=== PATIENT | female | born 1950 | race African-American/Black ===

== ENCOUNTER → 2018-04-02 | Outpatient (CLI) | payer MEDICARE, OTHER ==
[2018-04-02 10:01] LABS: ABSOLUTE BASOPHILS # (AUTO) 0.1 10^3/uL (0.0-0.2); ABSOLUTE EOSINOPHILS # (AUTO) 0.2 10^3/uL (0.0-0.6); ABSOLUTE LYMPHOCYTES (AUTO) 1.6 10^3/uL (0.5-4.7); ABSOLUTE MONOCYTES (AUTO) 0.4 10^3/uL (0.1-1.4); ABSOLUTE NEUT (AUTO) 3.3 10^3/uL (1.7-8.2); BASOPHILS % (AUTO) 1.4 % (0-2); EOSINOPHILS % (AUTO) 3.6 % (0-6); HEMATOCRIT 35.4 % (36.0-47.0); HEMOGLOBIN 11.6 g/dL (12.0-15.5); LYMPHOCYTES % (AUTO) 28.2 % (13-45); MEAN CORPUSCULAR HEMOGLOBIN 27.3 pg (27.0-33.4); MEAN CORPUSCULAR HGB CONC 32.9 g/dL (32.0-36.0); MEAN CORPUSCULAR VOLUME 83 fl (80-97); MONOCYTES % (AUTO) 7.9 % (3-13); PLATELET COUNT 259 10^3/uL (150-450); RED BLOOD COUNT 4.27 10^6/uL (3.72-5.28); RED CELL DISTRIBUTION WIDTH 13.7 % (11.5-14.0); SEGMENTED NEUTROPHILS % (AUTO) 58.9 % (42-78); TOTAL CELLS COUNTED % (AUTO) 100 %; WHITE BLOOD COUNT 5.5 10^3/uL (4.0-10.5)
[2018-04-02 10:29] LABS: CHOLESTEROL 232.89 mg/dL (0-200); TRIGLYCERIDES 126 mg/dL (<150); VLDL CHOLESTEROL 25.2 mg/dL (10-31)
[2018-04-02 10:39] LABS: DIRECT LDL 146 mg/dL (<100)
== END ==
LOC: OD 09:23
PROVIDERS: ATTEND Internal Medicine
DX: E11.9 Type 2 diabetes mellitus without complications (principal); I10 Essential (primary) hypertension; Z79.899 Other long term (current) drug therapy
CPT/HCPCS: 36415; 80061; 85025

== ENCOUNTER → 2018-04-21 | Outpatient (CLI) | payer MEDICARE, OTHER ==
[2018-04-21 10:08] LABS: ALANINE AMINOTRANSFERASE 34 U/L (9-52); ALBUMIN 4.1 g/dL (3.5-5.0); ALKALINE PHOSPHATASE 60 U/L (38-126); ANION GAP 15 (5-19); ASPARTATE AMINO TRANSFERASE 24 U/L (14-36); BILIRUBIN,DIRECT 0.3 mg/dL (0.0-0.4); BILIRUBIN,TOTAL 0.5 mg/dL (0.2-1.3); BLOOD UREA NITROGEN 16 mg/dL (7-20); CALCIUM 9.7 mg/dL (8.4-10.2); CARBON DIOXIDE 28 mmol/L (22-30); CHLORIDE 100 mmol/L (98-107); GLUCOSE 120 mg/dL (75-110); POTASSIUM 3.9 mmol/L (3.6-5.0); SODIUM 142.6 mmol/L (137-145); TOTAL PROTEIN 7.2 g/dL (6.3-8.2)
== END ==
LOC: OD 08:50
PROVIDERS: ATTEND Internal Medicine
DX: E11.9 Type 2 diabetes mellitus without complications (principal); I10 Essential (primary) hypertension; Z79.899 Other long term (current) drug therapy
CPT/HCPCS: 36415; 80053

== ENCOUNTER → 2018-07-06 | Outpatient (CLI) | payer MEDICARE, OTHER ==
[2018-07-06 17:02] LABS: ABSOLUTE EOSINOPHILS # (AUTO) 0.2 10^3/uL (0.0-0.6); ABSOLUTE LYMPHOCYTES (AUTO) 1.7 10^3/uL (0.5-4.7); ABSOLUTE MONOCYTES (AUTO) 0.5 10^3/uL (0.1-1.4); ABSOLUTE NEUT (AUTO) 3.2 10^3/uL (1.7-8.2); BASOPHILS % (AUTO) 0.8 % (0-2); EOSINOPHILS % (AUTO) 3.7 % (0-6); HEMATOCRIT 36.1 % (36.0-47.0); LYMPHOCYTES % (AUTO) 29.8 % (13-45); MEAN CORPUSCULAR HEMOGLOBIN 27.5 pg (27.0-33.4); MEAN CORPUSCULAR HGB CONC 33.3 g/dL (32.0-36.0); MEAN CORPUSCULAR VOLUME 83 fl (80-97); MONOCYTES % (AUTO) 9.3 % (3-13); PLATELET COUNT 275 10^3/uL (150-450); RED BLOOD COUNT 4.37 10^6/uL (3.72-5.28); RED CELL DISTRIBUTION WIDTH 13.9 % (11.5-14.0); SEGMENTED NEUTROPHILS % (AUTO) 56.4 % (42-78); TOTAL CELLS COUNTED % (AUTO) 100 %; WHITE BLOOD COUNT 5.7 10^3/uL (4.0-10.5)
[2018-07-06 17:04] LABS: APPEARANCE,URINE CLEAR; BILIRUBIN,URINE NEGATIVE (NEGATIVE); COLOR,URINE YELLOW; GLUCOSE, URINE NEGATIVE (NEGATIVE); KETONES,URINE NEGATIVE (NEGATIVE); LEUKOCYTE ESTERASE,URINE SMALL (NEGATIVE); NITRITE,URINE NEGATIVE (NEGATIVE); PROTEIN,URINE NEGATIVE (NEGATIVE); URINE SPECIFIC GRAVITY 1.019; UROBILINOGEN,URINE NEGATIVE mg/dL (<2.0)
[2018-07-06 17:24] LABS: ANION GAP 10 (5-19); BLOOD UREA NITROGEN 14 mg/dL (7-20); CALCIUM 9.9 mg/dL (8.4-10.2); CARBON DIOXIDE 27 mmol/L (22-30); CHLORIDE 103 mmol/L (98-107); GLUCOSE 113 mg/dL (75-110); POTASSIUM 4.7 mmol/L (3.6-5.0); SODIUM 139.8 mmol/L (137-145)
--- NOTE | 2018-07-06 17:30 | RADIOLOGY REPORT (SQ) ---
EXAM DESCRIPTION: CHEST PA/LATERAL COMPLETED DATE/TIME: 07/06/2018 5:06 pm REASON FOR STUDY: PRE-OP COMPARISON: 12/23/2008 EXAM PARAMETERS: NUMBER OF VIEWS: two views TECHNIQUE: Digital Frontal and Lateral radiographic views of the chest acquired. RADIATION DOSE: NA LIMITATIONS: none FINDINGS: LUNGS AND PLEURA: No opacities, masses or pneumothorax. No pleural effusion. MEDIASTINUM AND HILAR STRUCTURES: No masses or contour abnormalities. HEART AND VASCULAR STRUCTURES: Heart normal size. No evidence for failure. BONES: No acute findings. HARDWARE: None in the chest. OTHER: No other significant finding. IMPRESSION: NO SIGNIFICANT RADIOGRAPHIC FINDING IN THE CHEST. TECHNICAL DOCUMENTATION: JOB ID: [id number] [employer]- All Rights Reserved Reading location - IP/workstation name: [email or web address]
--- NOTE | 2018-07-06 19:40 | EKG REPORT ---
SEVERITY:- ABNORMAL ECG - SINUS RHYTHM PROBABLE INFERIOR INFARCT, OLD : Confirmed by: Carl Sheehan 06-Jul-2018 19:38:55
== END ==
LOC: OD 16:19
PROVIDERS: ATTEND Orthopaedic Surgery
DX: Z01.810 Encounter for preprocedural cardiovascular examination (principal); Z01.812 Encounter for preprocedural laboratory examination; Z01.818 Encounter for other preprocedural examination; E11.9 Type 2 diabetes mellitus without complications
CPT/HCPCS: 36415; 71046; 80048; 81001; 83036; 85025; 93005; 93010

== ENCOUNTER 2018-07-26 05:29 | Inpatient (IN) | payer MEDICARE, OTHER ==
--- NOTE | 2018-07-21 14:04 | Physician Advisory Note ---
Physician Advisor ProgressNote .: [facility] have reviewed the medical record for this patient. Physician Advisor Statement: H&P needs specifics of DJD findings on xray - joint space narrowing, osteophytes , ... Other points Medicare looks for are covered. Thanks! CK
[~2018-07-26 05:29] MED LIST: BUPIVACAINE INJ/PF LIPOSOME/PF 266 MG/20 ML SDV INJ PRN; CEFAZOLIN INJ 1 GM VIAL IV PRN; CEFAZOLIN INJ 1 GM VIAL ONE; IBUPROFEN 800 MG in NORMAL SALINE 250 ML IV PRN; LACTATED RINGERS 1000 ML IV PRN; LANSOPRAZOLE 15 MG TAB.RAP.DR ONE; LANSOPRAZOLE 15 MG TAB.RAP.DR PO PRN; LIDOCAINE 0.5% INJ-PF (5 MG/ML) 50 ML SDV SUBCUT PRN; OXYCODONE HCL SR 10 MG TABLET PO ONE; OXYCODONE HCL SR 10 MG TABLET PO PRN; VANCOMYCIN HCL 1,000 MG in DEXTROSE 5%-WATER 250 ML IV PRN
[2018-07-26] MEDS ORDERED: THROMBIN (BOVINE) TOPICAL 20000 UNIT VIAL ONE (06:58)
[2018-07-26] MEDS ORDERED: BUPIVACAINE INJ/PF LIPOSOME/PF 266 MG/20 ML SDV ONE (06:59)
[2018-07-26] MEDS ORDERED: MIDAZOLAM 2 MG/2 ML INJ ONE (07:05)
[2018-07-26] MEDS ORDERED: ONDANSETRON HCL INJ/PF 4 MG/2 ML SDV ONE (07:05)
[2018-07-26] MEDS ORDERED: TRANEXAMIC ACID INJ/PF 1,000 MG/10 ML SDV IV ONE ×3 (07:05→10:30)
[2018-07-26] MEDS ORDERED: PROPOFOL INJ 200 MG/20 ML VIAL IV ONE (07:05)
[2018-07-26] MEDS ORDERED: BUPIVACAINE HCL/DEX-WATER/PF 15 MG/2 ML AMPULE ONE (07:06)
[2018-07-26] MEDS ORDERED: DIPHENHYDRAMINE HCL 50 MG/ML VIAL IV PRN ×2 (07:53→08:33)
[2018-07-26] MEDS ORDERED: PROMETHAZINE HCL INJ 25 MG/1 ML VIAL IV PRN (07:53)
[2018-07-26] MEDS ORDERED: MEPERIDINE HCL/PF INJ 25 MG/1 ML DISP.SYRIN IV PRN (07:53)
[2018-07-26] MEDS ORDERED: MORPHINE SULFATE 10 MG/ML INJ IV PRN ×3 (07:53→08:33)
[2018-07-26] MEDS ORDERED: FENTANYL CITRATE INJ/PF 100 MCG/2 ML AMPUL IV PRN ×3 (07:53)
[2018-07-26] MEDS ORDERED: BUPIVACAINE HCL 0.25% /EPINEPHRINE INJ/PF 30 ML SDV ONE ×2 (07:58→08:17)
[2018-07-26] MEDS ORDERED: THROMBIN (BOVINE) 5000 UNIT EPITAXIS KIT TP ONE (08:11)
[2018-07-26] MEDS ORDERED: RINGERS SOLUTION,LACTATED 1,000 ML IV PRN (08:33)
[2018-07-26] MEDS ORDERED: ZOLPIDEM TARTRATE 5 MG TABLET PO PRN (08:33)
[2018-07-26] MEDS ORDERED: ONDANSETRON 4 MG TAB.RAPDIS PO PRN (08:33)
[2018-07-26] MEDS ORDERED: ACETAMINOPHEN 325 MG TABLET PO PRN (08:33)
[2018-07-26] MEDS ORDERED: OXYCODONE HCL IR 5 MG TABLET PO PRN (08:33)
[2018-07-26] MEDS ORDERED: MAG HYDROX/AL HYDROX/SIMETH SUSP 30 ML UDCUP PO PRN (08:33)
[2018-07-26] MEDS ORDERED: ONDANSETRON HCL INJ/PF 4 MG/2 ML SDV IV PRN (08:33)
[2018-07-26] MEDS ORDERED: MORPHINE SULFATE 10 MG/ML INJ IM PRN (08:33)
--- NOTE | 2018-07-26 08:38 | Operative Report ---
Operative Report DATE OF SURGERY: 07/26/18 PREOPERATIVE DIAGNOSIS: Right knee arthritis OPERATION: Right knee arthroplasty SURGEON: ELOY CELESTE ANESTHESIA: Spinal TISSUE REMOVED OR ALTERED: Bone to pathology ESTIMATED BLOOD LOSS: 100 PROCEDURE: Implants used: Femur: Brant triathlon size 4 CR femur Tibia: 4 tibia Tibial liner: 11 mm CS insert Patella: 32 mm oval patella Procedure with the patient supine on the operating table the right the limb is prepped and draped in a sterile fashion. The limb was elevated for exsanguination and the tourniquet inflated to 280 torr. A standard midline median parapatellar approach the knee is taken. Access is gained to the femoral canal through the intercondylar notch. Intramedullary alignment instrumentation used to resect 10 mm of distal femur in 5 of valgus. Sizing guide indicated a size 4 femur. Appropriate cutting jig is then used to fashion anterior posterior and chamfer cuts. A trial reduction femurs performed and this is judged to be adequate. Attention was next turned to the tibia. Using an extra medullary alignment system 11 millimeters was resected off the lateral tibial plateau to make up for medial plateau defect. This is sized to a size 4 tibia. A trial reduction was now performed with a 4 femur and a for tibia using a 11 millimeters spacer. It is full extension and central patellofemoral tracking. The articular surface the patella was next resected using an oscillating saw. All trial implants were removed. Polymethylmethacrylate is mixed and used to cement the above implants in place. On adequate curing the cement excess cement was removed the tourniquet was deflated hemostasis obtained the wound is then closed in layers using interrupted Vicryl followed by daira. A sterile compressive dressing was applied and the patient returned to recovery room in satisfactory condition.
--- NOTE | 2018-07-26 11:00 | RADIOLOGY REPORT (SQ) ---
EXAM DESCRIPTION: KNEE RIGHT 2 VIEWS COMPLETED DATE/TIME: 07/26/2018 10:19 am REASON FOR STUDY: Right Total Knee Arthroplasty M17.11 UNILATERAL PRIMARY OSTEOARTHRITIS, RIGHT KNE E COMPARISON: None. NUMBER OF VIEWS: 2 view(s). TECHNIQUE: Digital radiographic images of the right knee post-procedure. LIMITATIONS: None. FINDINGS: BONES: No worrisome or unexpected findings post-procedure. DEVICE: The patient is status post right total knee replacement. The prosthesis appears well seated in the distal femur and proximal tibia in the projections obtained SOFT TISSUES: No worrisome findings. Expected postoperative soft tissue changes. IMPRESSION: SATISFACTORY POSTOPERATIVE RIGHT KNEE. TECHNICAL DOCUMENTATION: JOB ID: [id number] [employer]- All Rights Reserved Reading location - IP/workstation name: [email or web address]
[2018-07-26] MEDS: MORPHINE SULFATE 10 MG/ML INJ IV PRN ×2 (12:47→23:37)
--- NOTE | 2018-07-26 14:06 | Physician Advisory Note ---
Physician Advisor ProgressNote .: [facility], I have reviewed the medical record for this patient. Physician Advisor Statement: Attending expecting Medicare pt to need rehab stay post-op, JOCELYNE consulted for this. Therefore, approp for Inpt for her TKA, as ordered. CK
[2018-07-26] MEDS ORDERED: ACETAMINOPHEN 1,000 MG/100 ML RTUPB IV ONE (14:33)
[2018-07-26] MEDS: SENNOSIDES/DOCUSATE 8.6-50 MG 1 EACH TABLET PO SCH (17:50)
[2018-07-26] MEDS: PREGABALIN 75 MG CAPSULE PO SCH (17:51)
[2018-07-26] MEDS ORDERED: VANCOMYCIN HCL 1,000 MG in DEXTROSE 5%-WATER 250 ML IV ONE (20:33)
[2018-07-26] MEDS: OXYCODONE HCL SR 10 MG TABLET PO SCH (21:14)
[2018-07-27] MEDS ORDERED: LANSOPRAZOLE 30 MG TAB.RAP.DR PO SCH (06:00)
[2018-07-27 06:50] LABS: HEMOGLOBIN 11.3 g/dL (12.0-15.5); MEAN CORPUSCULAR HEMOGLOBIN 27.7 pg (27.0-33.4); MEAN CORPUSCULAR HGB CONC 34.1 g/dL (32.0-36.0); MEAN CORPUSCULAR VOLUME 81 fl (80-97); PLATELET COUNT 247 10^3/uL (150-450); RED BLOOD COUNT 4.07 10^6/uL (3.72-5.28); RED CELL DISTRIBUTION WIDTH 13.8 % (11.5-14.0); WHITE BLOOD COUNT 10.1 10^3/uL (4.0-10.5)
[2018-07-27 06:59] LABS: ANION GAP 13 (5-19); BLOOD UREA NITROGEN 13 mg/dL (7-20); CALCIUM 9.4 mg/dL (8.4-10.2); CARBON DIOXIDE 26 mmol/L (22-30); CHLORIDE 95 mmol/L (98-107); GLUCOSE 184 mg/dL (75-110); SODIUM 133.8 mmol/L (137-145)
--- NOTE | 2018-07-27 07:17 | PDOC PROGRESS REPORT ---
Subjective Progress Note for:: 07/27/18 Reason For Visit: M17.11 UNILATERAL PRIMARY OSTEOARTHRITIS, RIGHT KN 67-year-old black female postop day 1 right knee arthroplasty. Patient with an uneventful postoperative course thus far. Physical Exam Vital Signs: Temp Pulse Resp BP Pulse Ox 37.0 C 77 18 160/85 H 91 L 07/26/18 23:56 07/26/18 23:56 07/26/18 23:56 07/26/18 23:56 07/26/18 23:56 Intake & Output 07/26/18 07/27/18 07/28/18 06:59 06:59 06:59 Intake Total 0 5205 Output Total 1500 Balance 0 3705 Weight 100.7 kg 107.5 kg General appearance: PRESENT: no acute distress, mild distress, obese Head exam: PRESENT: normocephalic Respiratory exam: PRESENT: unlabored Cardiovascular exam: PRESENT: RRR Vascular exam: PRESENT: normal capillary refill GI/Abdominal exam: PRESENT: soft Rectal exam: PRESENT: deferred Extremities exam: PRESENT: other - Right lower extremity knee dressing clean dry and intact. Distal neurovascular examination is intact. Neurological exam: PRESENT: alert, awake, oriented to person, oriented to place , oriented to time, oriented to situation. ABSENT: motor sensory deficit Psychiatric exam: PRESENT: appropriate affect, normal mood. ABSENT: homicidal ideation, suicidal ideation Skin exam: PRESENT: dry, intact, warm. ABSENT: cyanosis, rash Results Laboratory Results: 07/27/18 06:29 07/27/18 06:29 WBC 10.1 RBC 4.07 Hgb 11.3 L Hct 33.0 L MCV 81 MCH 27.7 MCHC 34.1 RDW 13.8 Plt Count 247 Impressions: Knee X-Ray 07/26/18 00:00 IMPRESSION: SATISFACTORY POSTOPERATIVE RIGHT KNEE. Status: Imported from PACS Assessment & Plan - Diagnosis (1) Arthritis of knee, right Is this a current diagnosis for this admission?: Yes Plan: 67-year-old black female status post right knee arthroplasty with an uneventful postoperative course. Patient made reasonable progress with physical therapy yesterday ambulating 100 feet. Patient lives alone and has 13 steps to enter her domicile. She is concerned about going home alone and is of the opinion that she would be better served with postoperative rehabilitation. In light of this the patient will remain hospitalized currently for 3 hospital nights and then be transferred to a fpc facility. - Time Time Spent with patient: 15-24 minutes Anticipated discharge: SNF Within: Other
[2018-07-27] MEDS ORDERED: OXYCODONE HCL IR 5 MG TABLET PO PRN (07:42)
[2018-07-27] MEDS: AMLODIPINE BESYLATE 10 MG TABLET PO SCH (09:29)
[2018-07-27] MEDS: FLUOXETINE HCL 20 MG CAPSULE PO SCH (09:29)
[2018-07-27] MEDS: ASPIRIN 81 MG TABLET, ENT COATED PO SCH (09:29)
[2018-07-27] MEDS: PREGABALIN 75 MG CAPSULE PO SCH ×2 (09:29→18:45)
[2018-07-27] MEDS: SENNOSIDES/DOCUSATE 8.6-50 MG 1 EACH TABLET PO SCH ×2 (09:29→18:45)
[2018-07-27] MEDS: PRENATAL VITAMIN W DHA CAPSULE PO SCH (09:29)
[2018-07-27] MEDS: OXYCODONE HCL SR 10 MG TABLET PO SCH ×2 (09:30→21:26)
[2018-07-27] MEDS: MONTELUKAST SODIUM 10 MG TABLET PO SCH (09:30)
[2018-07-27] MEDS ORDERED: (PENDING PHARMACY ID) (Quetiapine Fumarate [Seroquel] 200 MG) PO SCH (10:00)
[2018-07-27] MEDS ORDERED: [UNRECOGNIZED DRUG - OTHER] PO SCH (10:00)
[2018-07-27] MEDS ORDERED: HYDROCHLOROTHIAZIDE PO SCH (10:00)
[2018-07-27] MEDS ORDERED: (PENDING PHARMACY ID) (Labetalol Hcl [Trandate] 300 MG) PO SCH (10:00)
[2018-07-27] MEDS ORDERED: BENAZEPRIL PO SCH (10:00)
[2018-07-27] MEDS: HYDROCHLOROTHIAZIDE 12.5 MG TABLET PO SCH (10:49)
[2018-07-27] MEDS: BENAZEPRIL HCL 20 MG TABLET PO SCH (10:49)
[2018-07-27] MEDS: FLUTICASONE/SALMETEROL DISKUS 250-50 MCG/DOSE IH SCH (10:49)
[2018-07-27] MEDS: QUETIAPINE FUMARATE 100 MG TABLET PO SCH ×2 (10:50→21:20)
[2018-07-27] MEDS: LABETALOL HCL 200 MG TABLET PO SCH ×2 (10:54→21:19)
[2018-07-27] MEDS ORDERED: LABETALOL HCL INJ 20 MG/4 ML DISP.SYRIN IV ONE ×2 (13:00→13:15)
[2018-07-27] MEDS ORDERED: NYSTATIN 500000 UNIT/5 ML UDCUP PO SCH (14:00)
[2018-07-27] MEDS ORDERED: GLUCAGON,HUMAN RECOMB 1 MG INJ IM PRN (15:38)
[2018-07-27] MEDS ORDERED: DEXTROSE 40% GEL 15 GM TUBE PO PRN ×2 (15:38)
[2018-07-27] MEDS ORDERED: INSULIN LISPRO 100 UNIT/ML 3 ML VIAL SUBCUT PRN (15:38)
[2018-07-27] MEDS ORDERED: DEXTROSE 50%-WATER 25 GM/50 ML DISP.SYRIN IV PRN ×2 (15:38)
--- NOTE | 2018-07-27 15:38 | PDOC CONSULTATION ---
Consultation Consult Date: 07/27/18 Attending physician:: ELOY CELESTE Consult reason:: Hypertensive urgency History of Present Illness Admission Date/PCP: 07/26/18 05:29 CHANTEL VILLEGAS MD Patient complains of: Patient admitted for right total knee replacement History of Present Illness: EDUARDO CRUZ is a 67 year old female who suffers from hypertension and hyperlipidemia. Patient was admitted for an elective right total knee replacement. She apparently took her morning medicines came to the hospital for her surgery. Postoperatively patient did not receive her routine medications. She tolerated the procedure well but was noted to have an accelerated hypertension with blood pressures in the 180-190s. She was resumed on her outpatient medications and 2 hours later her systolic blood pressure was in excess of 200. A consultation for management of hypertension was requested. With the elevated blood pressure patient was given labetalol 20 mg IV she had already received her normal dose of 300 mg in addition to her other antihypertensive medications. Over the next 2 hours her blood pressure came down into the 150s and she is demonstrating reasonable control of her hypertension at this time. She is somewhat sedated at interview due to pain medication her pain appears adequately controlled and she has no other specific complaints. Past Medical History Cardiac Medical History: Reports: Hyperlipidema, Hypertension - on meds Denies: Atrial Fibrillation, Congestive Heart Failure, Coronary Artery Disease, Myocardial Infarction, Peripheral Vascular Disease, Pulmonary Embolism , Heart Murmur Pulmonary Medical History: Reports: Asthma Denies: Bronchitis, Chronic Obstructive Pulmonary Disease (COPD), Pneumonia, Respiratory Failure, Sleep Apnea, Tuberculosis Neurological Medical History: Denies: Seizures Endocrine Medical History: Reports: Diabetes Mellitus Type 2 Denies: Hyperthyroidism, Hypothyroidism Malignancy Medical History: Denies: Lung Cancer GI Medical History: Reports: Gastroesophageal Reflux Disease Denies: Crohn's Disease, Hiatal Hernia Musculoskeltal Medical History: Reports: Arthritis - knees Denies: Fibromyalgia Psychiatric Medical History: Reports: Depression Denies: Bipolar Disorder, Post Traumatic Stress Disorder Hematology: Denies: Anemia Past Surgical History Past Surgical History: Reports: Orthopedic Surgery - Right total knee replacement 07/26/2018, Other - Colonoscopy Denies: Amputation, Colostomy Social History Smoking Status: Never Smoker Hx Recreational Drug Use: No Hx Prescription Drug Abuse: No - Advance Directive Resuscitation Status: Full Code Family History Family History: Hypertension - Mother, Malignancy - Colon cancer-father Parental Family History Reviewed: Yes Children Family History Reviewed: Yes Sibling(s) Family History Reviewed.: Yes Medication/Allergy Home Medications: Amlodipine Besylate [Norvasc 10 mg Tablet] 10 mg PO DAILY 07/26/18 Benazepril/Hydrochlorothiazide [Benazepril-Hctz 20-12.5 mg Tab] 1 tab PO DAILY 07/26/18 Fluoxetine HCl [Prozac 20 mg Capsule] 20 mg PO DAILY 07/26/18 Fluticasone/Salmeterol [Advair 250-50 Diskus 14 Dose/Diskus] 2 puff IH DAILY Labetalol HCl [Trandate] 300 mg PO Q12 07/26/18 Meloxicam [Mobic] 7.5 mg PO BIDBS 07/26/18 Metformin HCl [Metformin HCl ER] 500 mg PO BIDBS 07/26/18 Montelukast Sodium [Singulair 10 mg Tablet] 10 mg PO DAILY 07/26/18 Omeprazole 20 mg PO BID 07/26/18 Quetiapine Fumarate [Seroquel] 200 mg PO BID 07/26/18 Rosuvastatin Calcium [Crestor 10 mg Tablet] 10 mg PO DAILY 07/26/18 Allergies/Adverse Reactions: No Known Allergies Allergy (Verified 07/13/18 10:06) Review of Systems All systems: reviewed and no additional remarkable complaints except as stated - Right lower extremity pain consistent with postoperative state Physical Exam Vital Signs: Temp Pulse Resp BP Pulse Ox 98.0 F 83 16 154/72 H 94 07/27/18 08:25 07/27/18 13:30 07/27/18 13:30 07/27/18 13:30 07/27/18 08:25 Intake & Output 07/26/18 07/27/18 07/28/18 06:59 06:59 06:59 Intake Total 0 5205 Output Total 1500 Balance 0 3705 Weight 100.7 kg 107.5 kg General appearance: PRESENT: no acute distress, well-developed, well-nourished Head exam: PRESENT: atraumatic, normocephalic Eye exam: PRESENT: conjunctiva pink, EOMI, PERRLA. ABSENT: scleral icterus Neck exam: ABSENT: carotid bruit, JVD, lymphadenopathy, thyromegaly Respiratory exam: PRESENT: clear to auscultation ezio. ABSENT: rales, rhonchi, wheezes Cardiovascular exam: PRESENT: RRR. ABSENT: diastolic murmur, rubs, systolic murmur Pulses: PRESENT: normal dorsalis pedis pul GI/Abdominal exam: PRESENT: normal bowel sounds, soft. ABSENT: distended, guarding, mass, organolmegaly, rebound, tenderness Extremities exam: PRESENT: full ROM. ABSENT: calf tenderness, clubbing, pedal edema Musculoskeletal exam: PRESENT: tenderness - Right lower extremity surgical dressing in place status post total knee replacement Neurological exam: PRESENT: alert - Slightly groggy from pain medication, awake , oriented to person, oriented to place, oriented to time, oriented to situation , CN II-XII grossly intact. ABSENT: motor sensory deficit Psychiatric exam: PRESENT: appropriate affect, normal mood. ABSENT: homicidal ideation, suicidal ideation Results Laboratory Results: 07/27/18 06:29 07/27/18 06:29 07/27/18 07/27/18 06:29 06:29 WBC 10.1 RBC 4.07 Hgb 11.3 L Hct 33.0 L MCV 81 MCH 27.7 MCHC 34.1 RDW 13.8 Plt Count 247 Sodium 133.8 L Potassium 4.0 Chloride 95 L Carbon Dioxide 26 Anion Gap 13 BUN 13 Creatinine 0.75 Est GFR ( Amer) > 60 Est GFR (Non-Af Amer) > 60 Glucose 184 H Calcium 9.4 Impressions: Knee X-Ray 07/26/18 00:00 IMPRESSION: SATISFACTORY POSTOPERATIVE RIGHT KNEE. Assessment & Plan - Diagnosis (1) Hypertensive urgency Is this a current diagnosis for this admission?: Yes Plan: Patient responded well to additional IV labetalol. Patient is currently back on her home medications of amlodipine labetalol benazepril hydrochlorothiazide. Will provide as needed hydralazine IV if systolic greater than 180. Will monitor blood pressure and we will not make any changes to her home regimen at this time. (2) Hyperlipidemia Is this a current diagnosis for this admission?: Yes Plan: Continue statin (3) Diabetes mellitus type 2 in obese Is this a current diagnosis for this admission?: Yes Plan: Check hemoglobin A1c continue metformin and initiate sliding scale to monitor glucose (4) Depression Is this a current diagnosis for this admission?: Yes Plan: Continue Seroquel and Prozac (5) GERD (gastroesophageal reflux disease) Is this a current diagnosis for this admission?: Yes Plan: Continue PPI - Time Time Spent: 30 to 50 Minutes - Plan Summary Plan Summary: Thank you for the consultation will follow the patient along with you while she is in the hospital.
[2018-07-27] MEDS ORDERED: HYDRALAZINE HCL INJ/PF 20 MG/1 ML SDV IV PRN (15:40)
[2018-07-27] MEDS ORDERED: (PENDING PHARMACY ID) (Metformin Hcl [Metformin Hcl Er] 500 MG) PO SCH (17:00)
[2018-07-27] MEDS: METFORMIN HCL 500 MG TABLET PO SCH (18:45)
[2018-07-27] MEDS: LANSOPRAZOLE 15 MG TAB.RAP.DR PO SCH (18:45)
[2018-07-27] MEDS: ATORVASTATIN CALCIUM 20 MG TABLET PO SCH (21:21)
[2018-07-28 05:18] LABS: HEMATOCRIT 30.1 % (36.0-47.0); HEMOGLOBIN 10.1 g/dL (12.0-15.5); MEAN CORPUSCULAR HEMOGLOBIN 27.6 pg (27.0-33.4); MEAN CORPUSCULAR HGB CONC 33.7 g/dL (32.0-36.0); MEAN CORPUSCULAR VOLUME 82 fl (80-97); PLATELET COUNT 246 10^3/uL (150-450); RED BLOOD COUNT 3.67 10^6/uL (3.72-5.28); RED CELL DISTRIBUTION WIDTH 13.8 % (11.5-14.0); WHITE BLOOD COUNT 9.6 10^3/uL (4.0-10.5)
[2018-07-28 05:42] LABS: ANION GAP 12 (5-19); BLOOD UREA NITROGEN 28 mg/dL (7-20); CALCIUM 9.3 mg/dL (8.4-10.2); CARBON DIOXIDE 27 mmol/L (22-30); CHLORIDE 93 mmol/L (98-107); GLUCOSE 141 mg/dL (75-110); POTASSIUM 4.2 mmol/L (3.6-5.0); SODIUM 131.8 mmol/L (137-145)
[2018-07-28] MEDS: LANSOPRAZOLE 15 MG TAB.RAP.DR PO SCH ×2 (06:30→17:46)
--- NOTE | 2018-07-28 07:14 | PDOC PROGRESS REPORT ---
Subjective Progress Note for:: 07/28/18 Reason For Visit: M17.11 UNILATERAL PRIMARY OSTEOARTHRITIS, RIGHT KN 67-year-old black female now postop day 2 status post right knee arthroplasty. Patient made excellent progress with physical therapy yesterday. Pain is better controlled on the new analgesic regimen. Physical Exam Vital Signs: Temp Pulse Resp BP Pulse Ox 37.2 C 86 18 133/61 H 91 L 07/27/18 23:26 07/27/18 23:26 07/27/18 23:26 07/27/18 23:26 07/27/18 23:26 Intake & Output 07/27/18 07/28/18 07/29/18 06:59 06:59 06:59 Intake Total 5205 1187 Output Total 1500 Balance 3705 1187 Weight 107.5 kg 107.1 kg General appearance: PRESENT: no acute distress Head exam: PRESENT: normocephalic Respiratory exam: PRESENT: unlabored Cardiovascular exam: PRESENT: RRR Pulses: PRESENT: +1 pedal pulses bilateral Vascular exam: PRESENT: normal capillary refill GI/Abdominal exam: PRESENT: soft Rectal exam: PRESENT: deferred Extremities exam: PRESENT: other - Right knee compressive dressing is removed today. The underlying op site is clean dry and intact. There is minimal pedal edema. Distal neurovascular examination is intact. Neurological exam: PRESENT: alert - We will hire somebody else to manage it, awake, oriented to person, oriented to place, oriented to time, oriented to situation. ABSENT: motor sensory deficit Psychiatric exam: PRESENT: appropriate affect, normal mood. ABSENT: homicidal ideation, suicidal ideation Skin exam: PRESENT: dry, intact, warm. ABSENT: cyanosis, rash Results Laboratory Results: 07/28/18 04:38 07/28/18 04:38 07/27/18 07/28/18 07/28/18 06:29 04:38 04:38 WBC 9.6 RBC 3.67 L Hgb 10.1 L Hct 30.1 L MCV 82 MCH 27.6 MCHC 33.7 RDW 13.8 Plt Count 246 Sodium 133.8 L 131.8 L Potassium 4.0 4.2 Chloride 95 L 93 L Carbon Dioxide 26 27 Anion Gap 13 12 BUN 13 28 H Creatinine 0.75 1.89 H Est GFR ( Amer) > 60 32 L Est GFR (Non-Af Amer) > 60 27 L Glucose 184 H 141 H Calcium 9.4 9.3 Magnesium 2.1 Impressions: Knee X-Ray 07/26/18 00:00 IMPRESSION: SATISFACTORY POSTOPERATIVE RIGHT KNEE. Status: Imported from PACS Assessment & Plan - Diagnosis (1) Arthritis of knee, right Is this a current diagnosis for this admission?: Yes - Physical therapist Plan: 67-year-old black female status post right knee arthroplasty with an uneventful postoperative course. The patient continues to be of the opinion that inpatient postoperative rehabilitation is appropriate. Plan for transfer to fdc facility tomorrow. - Time Time Spent with patient: 15-24 minutes Anticipated discharge: SNF Within: within 24 hours
[2018-07-28] MEDS: BENAZEPRIL HCL 20 MG TABLET PO SCH (10:20)
[2018-07-28] MEDS: LABETALOL HCL 200 MG TABLET PO SCH ×2 (10:21→23:45)
[2018-07-28] MEDS: AMLODIPINE BESYLATE 10 MG TABLET PO SCH (10:24)
--- NOTE | 2018-07-28 10:33 | PDOC PROGRESS REPORT ---
Subjective Progress Note for:: 07/28/18 Subjective:: Patient's blood pressure is normotensive today. Voicing no complaints. Sodium is now 131. Patient is on hydrochlorothiazide. Patient's BUN and creatinine have elevated creatinine 1.8 baseline is 1.0. Reason For Visit: M17.11 UNILATERAL PRIMARY OSTEOARTHRITIS, RIGHT KN Physical Exam Vital Signs: Temp Pulse Resp BP Pulse Ox 98.5 F 89 16 98/46 L 90 L 07/28/18 07:52 07/28/18 07:52 07/28/18 07:52 07/28/18 07:52 07/28/18 07:52 Intake & Output 07/27/18 07/28/18 07/29/18 06:59 06:59 06:59 Intake Total 5205 1187 Output Total 1500 Balance 3705 1187 Weight 107.5 kg 107.1 kg General appearance: PRESENT: no acute distress, well-developed, well-nourished Neck exam: ABSENT: carotid bruit, JVD, lymphadenopathy, thyromegaly Respiratory exam: PRESENT: clear to auscultation ezio. ABSENT: rales, rhonchi, wheezes Cardiovascular exam: PRESENT: RRR. ABSENT: diastolic murmur, rubs, systolic murmur Pulses: PRESENT: normal dorsalis pedis pul Vascular exam: PRESENT: normal capillary refill GI/Abdominal exam: PRESENT: normal bowel sounds, soft. ABSENT: distended, guarding, mass, organolmegaly, rebound, tenderness Extremities exam: PRESENT: full ROM, tenderness - Right knee consistent with postoperative state. ABSENT: calf tenderness, clubbing, pedal edema Skin exam: PRESENT: other - Surgical wound intact Results Laboratory Results: 07/28/18 04:38 07/28/18 04:38 07/28/18 07/28/18 04:38 04:38 WBC 9.6 RBC 3.67 L Hgb 10.1 L Hct 30.1 L MCV 82 MCH 27.6 MCHC 33.7 RDW 13.8 Plt Count 246 Sodium 131.8 L Potassium 4.2 Chloride 93 L Carbon Dioxide 27 Anion Gap 12 BUN 28 H Creatinine 1.89 H Est GFR ( Amer) 32 L Est GFR (Non-Af Amer) 27 L Glucose 141 H Calcium 9.3 Magnesium 2.1 Impressions: Knee X-Ray 07/26/18 00:00 IMPRESSION: SATISFACTORY POSTOPERATIVE RIGHT KNEE. Assessment & Plan - Diagnosis (1) Arthritis of knee, right Is this a current diagnosis for this admission?: Yes - Physical therapist (2) Hypertensive urgency Is this a current diagnosis for this admission?: Yes Plan: Resolved patient normotensive. We will continue home regimen with the exception of discontinuation of hydrochlorothiazide due to hyponatremia. (3) Hyperlipidemia Is this a current diagnosis for this admission?: Yes Plan: Continue statin (4) Diabetes mellitus type 2 in obese Is this a current diagnosis for this admission?: Yes Plan: Hemoglobin A1c 7.2 we will continue metformin for the present if creatinine rises greater than 2 will discontinue. (5) Depression Is this a current diagnosis for this admission?: Yes Plan: To use Seroquel and Prozac unchanged from outpatient. (6) GERD (gastroesophageal reflux disease) Is this a current diagnosis for this admission?: Yes Plan: Continue PPI (7) Acute renal injury Is this a current diagnosis for this admission?: Yes Plan: BUN 28 creatinine 1.8. Patient's baseline creatinine is 1.0. Will initiate saline infusion at 100 mL's an hour as this appears to be a prerenal azotemia. (8) Hyponatremia Is this a current diagnosis for this admission?: Yes Plan: Patient's baseline sodium on admission was 133 she is on hydrochlorothiazide will discontinue hydrochlorothiazide place patient on furosemide 20 mg daily and give saline infusion. BMP in a.m. - Time Time Spent with patient: 25-34 minutes
[2018-07-28] MEDS: SENNOSIDES/DOCUSATE 8.6-50 MG 1 EACH TABLET PO SCH ×2 (10:58→17:46)
[2018-07-28] MEDS: OXYCODONE HCL SR 10 MG TABLET PO SCH (10:58)
[2018-07-28] MEDS: MONTELUKAST SODIUM 10 MG TABLET PO SCH (10:58)
[2018-07-28] MEDS: PREGABALIN 75 MG CAPSULE PO SCH (10:59)
[2018-07-28] MEDS: METFORMIN HCL 500 MG TABLET PO SCH ×2 (10:59→17:46)
[2018-07-28] MEDS: PRENATAL VITAMIN W DHA CAPSULE PO SCH (10:59)
[2018-07-28] MEDS: FLUTICASONE/SALMETEROL DISKUS 250-50 MCG/DOSE IH SCH (11:04)
[2018-07-28] MEDS: QUETIAPINE FUMARATE 100 MG TABLET PO SCH ×2 (11:04→23:20)
[2018-07-28] MEDS: ASPIRIN 81 MG TABLET, ENT COATED PO SCH (11:04)
[2018-07-28] MEDS: FUROSEMIDE 20 MG TABLET PO SCH (11:13)
[2018-07-28] MEDS: FLUOXETINE HCL 20 MG CAPSULE PO SCH (11:13)
[2018-07-28] MEDS: HYDROCHLOROTHIAZIDE 12.5 MG TABLET PO SCH (17:15)
[2018-07-28] MEDS ORDERED: NALOXONE HCL INJ/PF 0.4 MG/1 ML SDV ONE ×2 (17:30→17:36)
--- NOTE | 2018-07-28 18:07 | Progress Note ---
Provider Note Provider Note: Intact by nursing the patient was extremely lethargic difficult to arouse unable to sit up. Instructed nurses to discontinue Lyrica decrease OxyContin to 10 mg twice daily and hold tonight's dose. Patient given 0.8 of Narcan and she returned to her baseline neurologic state. Will maintain Narcan at 0.4 mg every hour IV as needed sedation and resume patient's pain regimen in the morning without the Lyrica due to the patient's Seroquel.
[2018-07-28] MEDS ORDERED: NALOXONE HCL INJ/PF 0.4 MG/1 ML SDV IV ONE (18:15)
[2018-07-28] MEDS: NALOXONE HCL INJ/PF 0.4 MG/1 ML SDV IV PRN ×2 (20:29→23:45)
[2018-07-28] MEDS ORDERED: DIPHENHYDRAMINE HCL 50 MG/ML VIAL IV PRN (21:07)
[2018-07-28] MEDS: ATORVASTATIN CALCIUM 20 MG TABLET PO SCH (23:45)
[2018-07-29] MEDS: NORMAL SALINE 1000 ML 1,000 ML IV PRN ×3 (01:46→19:55)
[2018-07-29] MEDS: LANSOPRAZOLE 15 MG TAB.RAP.DR PO SCH ×2 (05:31→17:30)
--- NOTE | 2018-07-29 07:08 | PDOC TRANSFER SUMMARY ---
General - Admit/Disc Date/PCP Admission Date/Primary Care Provider: 07/26/18 05:29 CHANTEL VILLEGAS MD Discharge Date: 07/29/18 - Discharge Diagnosis (1) Arthritis of knee, right Is this a current diagnosis for this admission?: Yes - Physical therapist - Additional Information Resuscitation Status: Full Code Home Medications: Amlodipine Besylate [Norvasc 10 mg Tablet] 10 mg PO DAILY 07/26/18 Benazepril/Hydrochlorothiazide [Benazepril-Hctz 20-12.5 mg Tab] 1 tab PO DAILY 07/26/18 Fluoxetine HCl [Prozac 20 mg Capsule] 20 mg PO DAILY 07/26/18 Fluticasone/Salmeterol [Advair 250-50 Diskus 14 Dose/Diskus] 2 puff IH DAILY Labetalol HCl [Trandate] 300 mg PO Q12 07/26/18 Meloxicam [Mobic] 7.5 mg PO BIDBS 07/26/18 Metformin HCl [Metformin HCl ER] 500 mg PO BIDBS 07/26/18 Montelukast Sodium [Singulair 10 mg Tablet] 10 mg PO DAILY 07/26/18 Omeprazole 20 mg PO BID 07/26/18 Quetiapine Fumarate [Seroquel] 200 mg PO BID 07/26/18 Rosuvastatin Calcium [Crestor 10 mg Tablet] 10 mg PO DAILY 07/26/18 History of Present Illness Admission Date/PCP: 07/26/18 05:29 CHANTEL VILLEGAS MD History of Present Illness: EDUARDO CRUZ is a 67 year old female Patient with a 67-year-old black female with progressive right knee pain and functional disability secondary osteoarthritis. Patient is admitted for elective right knee arthroplasty. Hospital Course Hospital Course: Patient is admitted through the operating where she undergoes uncomplicated right knee arthroplasty. She is returned to floor in satisfactory condition. Initially she makes excellent progress with physical therapy. Subsequently she seems to become oversedated secondary to narcotic administration and requires Narcan administration. Subsequently morphine and OxyContin are discontinued. Physical Exam Vital Signs: Temp Pulse Resp BP Pulse Ox 37.0 C 89 18 128/68 H 92 07/29/18 03:25 07/29/18 03:25 07/29/18 03:25 07/29/18 03:25 07/29/18 03:25 Intake & Output 07/28/18 07/29/18 07/30/18 06:59 06:59 06:59 Intake Total 1187 450 Output Total 800 Balance 1187 -350 Weight 107.1 kg 107.5 kg General appearance: PRESENT: no acute distress, obese Head exam: PRESENT: normocephalic Respiratory exam: PRESENT: unlabored Cardiovascular exam: PRESENT: RRR Pulses: PRESENT: +1 pedal pulses bilateral Vascular exam: PRESENT: normal capillary refill GI/Abdominal exam: PRESENT: soft Rectal exam: PRESENT: deferred Extremities exam: PRESENT: other - Right knee juan jose dressing is clean dry and intact. There is minimal pedal edema. Distal neurovascular examination is intact. Neurological exam: PRESENT: alert, awake, oriented to person, oriented to place , oriented to time, oriented to situation, CN II-XII grossly intact. ABSENT: motor sensory deficit Skin exam: PRESENT: dry, intact, warm. ABSENT: cyanosis, rash Results Laboratory Results: 07/28/18 04:38 07/28/18 04:38 Impressions: Knee X-Ray 07/26/18 00:00 IMPRESSION: SATISFACTORY POSTOPERATIVE RIGHT KNEE. Transfer Plan - Disposition Transfer Plan: Patient to be transferred to a prison facility for ongoing postoperative rehabilitation including range of motion, strengthening, and weightbearing as tolerated ambulation of the right lower extremity. Follow-up with Dr. [facility] for surgery in 2 weeks for staple removal. - Time Spent with Patient Time spent with patient: Less than 30 Minutes Qualifiers - * PATIENT BEING DISCHARGED WITH ANY OF THE FOLLOWING DIAGNOSIS: No VTE patient discharged on overlapping Therapy?: Yes Plan Discharge Plan: Patient be discharged to a prison facility when bed available.
[2018-07-29 07:32] LABS: HEMATOCRIT 27.6 % (36.0-47.0); HEMOGLOBIN 9.1 g/dL (12.0-15.5); MEAN CORPUSCULAR HEMOGLOBIN 27.3 pg (27.0-33.4); MEAN CORPUSCULAR HGB CONC 33.1 g/dL (32.0-36.0); MEAN CORPUSCULAR VOLUME 82 fl (80-97); PLATELET COUNT 206 10^3/uL (150-450); RED BLOOD COUNT 3.35 10^6/uL (3.72-5.28); RED CELL DISTRIBUTION WIDTH 13.7 % (11.5-14.0); WHITE BLOOD COUNT 10.3 10^3/uL (4.0-10.5)
[2018-07-29 07:51] LABS: ANION GAP 14 (5-19); BLOOD UREA NITROGEN 51 mg/dL (7-20); CALCIUM 8.8 mg/dL (8.4-10.2); CARBON DIOXIDE 24 mmol/L (22-30); CHLORIDE 92 mmol/L (98-107); GLUCOSE 173 mg/dL (75-110); POTASSIUM 4.1 mmol/L (3.6-5.0); SODIUM 130.2 mmol/L (137-145)
[2018-07-29] MEDS: METFORMIN HCL 500 MG TABLET PO SCH (08:28)
[2018-07-29] MEDS: FLUTICASONE/SALMETEROL DISKUS 250-50 MCG/DOSE IH SCH (10:05)
[2018-07-29] MEDS: MONTELUKAST SODIUM 10 MG TABLET PO SCH (10:07)
[2018-07-29] MEDS: FLUOXETINE HCL 20 MG CAPSULE PO SCH (10:07)
[2018-07-29] MEDS: AMLODIPINE BESYLATE 10 MG TABLET PO SCH (10:08)
[2018-07-29] MEDS: SENNOSIDES/DOCUSATE 8.6-50 MG 1 EACH TABLET PO SCH ×2 (10:08→17:29)
[2018-07-29] MEDS: PRENATAL VITAMIN W DHA CAPSULE PO SCH (10:08)
[2018-07-29] MEDS: ASPIRIN 81 MG TABLET, ENT COATED PO SCH (10:08)
[2018-07-29] MEDS: FUROSEMIDE 20 MG TABLET PO SCH (10:09)
[2018-07-29] MEDS: BENAZEPRIL HCL 20 MG TABLET PO SCH (10:09)
[2018-07-29] MEDS: QUETIAPINE FUMARATE 100 MG TABLET PO SCH ×2 (10:10→21:14)
[2018-07-29] MEDS: LABETALOL HCL 200 MG TABLET PO SCH (10:12)
--- NOTE | 2018-07-29 10:18 | PDOC PROGRESS REPORT ---
Subjective Progress Note for:: 07/29/18 Subjective:: Patient's blood pressure is normotensive today. Voicing no complaints. Sodium is now 130. Patient is off hydrochlorothiazide. Patient's BUN and creatinine have elevated creatinine further. BUN of 51 creatinine of 3.6. Patient had episodes of somnolence due to medication responded to Narcan. Opioids have been discontinued currently back on her outpatient Seroquel. Patient received no contrast it is unclear why her creatinine is rising. Nursing did report urinary retention but has subsequently resolved this. Reason For Visit: M17.11 UNILATERAL PRIMARY OSTEOARTHRITIS, RIGHT KN Physical Exam Vital Signs: Temp Pulse Resp BP Pulse Ox 98.6 F 87 18 128/68 H 92 07/29/18 03:25 07/29/18 07:00 07/29/18 03:25 07/29/18 03:25 07/29/18 03:25 Intake & Output 07/28/18 07/29/18 07/30/18 06:59 06:59 06:59 Intake Total 1187 450 Output Total 800 Balance 1187 -350 Weight 107.1 kg 107.5 kg General appearance: PRESENT: no acute distress, well-developed, well-nourished Eye exam: PRESENT: conjunctiva pink, EOMI, PERRLA. ABSENT: scleral icterus Respiratory exam: PRESENT: clear to auscultation ezio. ABSENT: rales, rhonchi, wheezes Cardiovascular exam: PRESENT: RRR. ABSENT: diastolic murmur, rubs, systolic murmur Pulses: PRESENT: normal dorsalis pedis pul GI/Abdominal exam: PRESENT: normal bowel sounds, soft. ABSENT: distended, guarding, mass, organolmegaly, rebound, tenderness Extremities exam: PRESENT: full ROM, tenderness - Operative right knee. ABSENT : calf tenderness, clubbing, pedal edema, +1 edema Results Laboratory Results: 07/29/18 06:56 07/29/18 06:56 07/29/18 07/29/18 06:56 06:56 WBC 10.3 RBC 3.35 L Hgb 9.1 L Hct 27.6 L MCV 82 MCH 27.3 MCHC 33.1 RDW 13.7 Plt Count 206 Sodium 130.2 L Potassium 4.1 Chloride 92 L Carbon Dioxide 24 Anion Gap 14 BUN 51 H Creatinine 3.64 H Est GFR ( Amer) 15 L Est GFR (Non-Af Amer) 12 L Glucose 173 H Calcium 8.8 Impressions: Knee X-Ray 07/26/18 00:00 IMPRESSION: SATISFACTORY POSTOPERATIVE RIGHT KNEE. Assessment & Plan - Diagnosis (1) Acute renal failure Is this a current diagnosis for this admission?: Yes Plan: Baseline creatinine 0.6-1.0. Currently creatinine is 3.6 no clear etiology. Patient did have some urinary retention postop but has since had normal post void residuals. Discussed case with Dr. Grande who will consult for nephrology. Obtain renal ultrasound random urinary creatinine sodium and protein. Continue current hydration and normal saline at 100 and pending results of the ultrasound. Patient may have had transient outlet obstruction causing her rising creatinine. There is no evidence of recent contrast. Patient's FANTA inhibitor has been held today but she did receive it yesterday when her creatinine was 1.8. Discontinue metformin (2) Arthritis of knee, right Is this a current diagnosis for this admission?: Yes - Physical therapist Plan: Postop day [address] Jones (3) Hypertensive urgency Is this a current diagnosis for this admission?: Yes (4) Hyperlipidemia Is this a current diagnosis for this admission?: Yes Plan: Continue statin (5) Diabetes mellitus type 2 in obese Is this a current diagnosis for this admission?: Yes Plan: Hemoglobin A1c 7.2 we will discontinue metformin for the present due to acute renal failure (6) Depression Is this a current diagnosis for this admission?: Yes Plan: To use Seroquel Remeron and Prozac unchanged from outpatient. Lyrica and opioids have been discontinued (7) GERD (gastroesophageal reflux disease) Is this a current diagnosis for this admission?: Yes Plan: Continue PPI (8) Hyponatremia Is this a current diagnosis for this admission?: Yes Plan: Hydrochlorothiazide discontinued sodium dropped further to 130 with saline infusion. Will obtain TSH urinary and serum osmole feel the hyponatremia is secondary to the underlying hydrochlorothiazide now the clinical picture is followed by the acute renal failure. - Time Time Spent with patient: 25-34 minutes
--- NOTE | 2018-07-29 13:31 | PDOC CONSULTATION ---
Consultation Consult Date: 07/29/18 Consult reason:: Oliguric VAUGHN. History of Present Illness Admission Date/PCP: 07/26/18 05:29 CHANTEL VILLEGAS MD History of Present Illness: EDUARDO CRUZ is a 67 year old female with h/o Diabetes, DJD, Hypertension, Schizophrenia was admitted for elective right knee arthroplasty on which was uneventful. Her pre operative renal nos were normal. Post Op she has a hypertensive crisis asn the hospitalsit was called in consult. Note a drop in systolic to 90's on the . She also had altered mental status from excessive narcotics which was appropriately treated with narcan and reversed. She does c/o some difficulty with urination but has had decent amount of urine flow. her creatinine began to rise on the and now is 3+.H/O heavy NSAID/ GUADARRAMA 2 usage for sometime preceeding surgery . Past Medical History Cardiac Medical History: Reports: Hyperlipidemia, Hypertension-primary Denies: Atrial Fibrillation, Coronary Artery Disease, Heart Murmur, Myocardial Infarction, Peripheral Vascular Disease, Pulmonary Embolism Pulmonary Medical History: Reports: Asthma Denies: Bronchitis, Chronic Obstructive Pulmonary Disease (COPD), Pneumonia, Respiratory Failure, Sleep Apnea, Tuberculosis Neurological Medical History: Denies: Seizures Endocrine Medical History: Reports: Diabetes Mellitus Type 2 Denies: Hyperthyroidism, Hypothyroidism Malignancy Medical History: Denies: Lung Cancer GI Medical History: Reports: Gastroesophageal Reflux Disease Denies: Crohn's Disease, Hiatal Hernia Musculoskeltal Medical History: Reports: Arthritis - knees Denies: Fibromyalgia, Rheumatoid Arthritis, Systemic Lupus Erythematosus Psychiatric Medical History: Reports: Depression Denies: Bipolar Disorder, Post Traumatic Stress Disorder Past Surgical History Past Surgical History: Reports: Orthopedic Surgery - Right total knee replacement 07/26/2018, Other - Colonoscopy Denies: Colostomy Social History Smoking Status: Never Smoker Hx Recreational Drug Use: No Hx Prescription Drug Abuse: No - Advance Directive Resuscitation Status: Full Code Family History Parental Family History Reviewed: Yes - negative for ESRD Children Family History Reviewed: No Sibling(s) Family History Reviewed.: No Medication/Allergy Home Medications: Amlodipine Besylate [Norvasc 10 mg Tablet] 10 mg PO DAILY 07/26/18 Benazepril/Hydrochlorothiazide [Benazepril-Hctz 20-12.5 mg Tab] 1 tab PO DAILY 07/26/18 Fluoxetine HCl [Prozac 20 mg Capsule] 20 mg PO DAILY 07/26/18 Fluticasone/Salmeterol [Advair 250-50 Diskus 14 Dose/Diskus] 2 puff IH DAILY Labetalol HCl [Trandate] 300 mg PO Q12 07/26/18 Meloxicam [Mobic] 7.5 mg PO BIDBS 07/26/18 Metformin HCl [Metformin HCl ER] 500 mg PO BIDBS 07/26/18 Montelukast Sodium [Singulair 10 mg Tablet] 10 mg PO DAILY 07/26/18 Omeprazole 20 mg PO BID 07/26/18 Quetiapine Fumarate [Seroquel] 200 mg PO BID 07/26/18 Rosuvastatin Calcium [Crestor 10 mg Tablet] 10 mg PO DAILY 07/26/18 Allergies/Adverse Reactions: No Known Allergies Allergy (Verified 07/13/18 10:06) Review of Systems Constitutional: ABSENT: chills, fatigue, fever(s), headache(s), night sweats, weakness Eyes: ABSENT: visual disturbances Cardiovascular: ABSENT: chest pain, dyspnea on exertion, edema, orthropnea Respiratory: ABSENT: dyspnea, hemoptysis Gastrointestinal: PRESENT: constipation. ABSENT: abdominal pain, diarrhea, heartburn, hematemesis, melena, nausea Genitourinary: ABSENT: dysuria, hematuria Neurological: ABSENT: abnormal speech, confusion, focal weakness Psychiatric: ABSENT: anxiety Hematologic/Lymphatic: ABSENT: easy bruising, lymphadenopathy Physical Exam Vital Signs: Temp Pulse Resp BP Pulse Ox 98.6 F 87 18 128/68 H 92 07/29/18 03:25 07/29/18 07:00 07/29/18 03:25 07/29/18 03:25 07/29/18 03:25 Intake & Output 07/28/18 07/29/18 07/30/18 06:59 06:59 06:59 Intake Total 1187 450 Output Total 800 Balance 1187 -350 Weight 107.1 kg 107.5 kg General appearance: PRESENT: no acute distress Eye exam: PRESENT: conjunctiva pink, EOMI, PERRLA. ABSENT: nystagmus Ear exam: PRESENT: normal external ear exam Mouth exam: PRESENT: moist, neck supple Neck exam: ABSENT: lymphadenopathy, meningismus, tenderness, thyromegaly, tracheal deviation Respiratory exam: PRESENT: clear to auscultation ezio. ABSENT: crackles Cardiovascular exam: PRESENT: +S1, +S2 GI/Abdominal exam: PRESENT: normal bowel sounds, soft. ABSENT: organomegaly, tenderness Extremities exam: PRESENT: +1 edema - of the right leg and none of the left.. ABSENT: calf tenderness Neurological exam: PRESENT: alert, awake, oriented to person, oriented to place Skin exam: ABSENT: erythema, rash Results Laboratory Results: 07/29/18 06:56 07/29/18 06:56 07/29/18 07/29/18 07/29/18 06:56 06:56 06:56 WBC 10.3 RBC 3.35 L Hgb 9.1 L Hct 27.6 L MCV 82 MCH 27.3 MCHC 33.1 RDW 13.7 Plt Count 206 Sodium 130.2 L Potassium 4.1 Chloride 92 L Carbon Dioxide 24 Anion Gap 14 BUN 51 H Creatinine 3.64 H Est GFR ( Amer) 15 L Est GFR (Non-Af Amer) 12 L Glucose 173 H Serum Osmolality 285 Calcium 8.8 TSH 07/29/18 06:56 WBC RBC Hgb Hct MCV MCH MCHC RDW Plt Count Sodium Potassium Chloride Carbon Dioxide Anion Gap BUN Creatinine Est GFR ( Amer) Est GFR (Non-Af Amer) Glucose Serum Osmolality Calcium TSH 0.84 Impressions: Knee X-Ray 07/26/18 00:00 IMPRESSION: SATISFACTORY POSTOPERATIVE RIGHT KNEE. Assessment & Plan - Diagnosis (1) Acute renal failure Is this a current diagnosis for this admission?: Yes Plan: Non oliguric.Question obstructive uropathy secondary to anesthetics, Narcotics, bed ridden state etc and additional factors like transient hypotension. Less in DD includes MAEVE. Get a mendoza in and follow up with renal US.Continue with hydration and stop ACEI. (2) Arthritis of knee, right Is this a current diagnosis for this admission?: Yes - Physical therapist Plan: S/P elective right knee arthroplasty. (3) Diabetes mellitus type 2 in obese Is this a current diagnosis for this admission?: Yes Plan: Adv on tight control. (4) GERD (gastroesophageal reflux disease) Is this a current diagnosis for this admission?: Yes (5) Hypertension Plan: presently well controlled. Monitor.
[2018-07-29 14:06] LABS: APPEARANCE,URINE CLEAR; BILIRUBIN,URINE NEGATIVE (NEGATIVE); COLOR,URINE STRAW; GLUCOSE, URINE NEGATIVE (NEGATIVE); KETONES,URINE NEGATIVE (NEGATIVE); LEUKOCYTE ESTERASE,URINE NEGATIVE (NEGATIVE); NITRITE,URINE NEGATIVE (NEGATIVE); PROTEIN,URINE NEGATIVE (NEGATIVE); URINE SPECIFIC GRAVITY 1.006; UROBILINOGEN,URINE NEGATIVE mg/dL (<2.0)
[2018-07-29 14:24] LABS: URINE CREATININE 70.3 mg/dL (15-278); URINE PROTEIN 22.5 mg/dL (<12)
[2018-07-29] MEDS ORDERED: ONDANSETRON HCL INJ/PF 4 MG/2 ML SDV IV PRN (15:30)
[2018-07-29] MEDS ORDERED: ONDANSETRON 4 MG TAB.RAPDIS PO PRN (15:30)
--- NOTE | 2018-07-29 18:11 | RADIOLOGY REPORT (SQ) ---
EXAM DESCRIPTION: U/S RETROPERITON LTD COMPLETED DATE/TIME: 07/29/2018 5:59 pm REASON FOR STUDY: Acute renal failure M17.11 UNILATERAL PRIMARY OSTEOARTHRITIS, RIGHT KNEE COMPARISON: None. TECHNIQUE: Dynamic and static grayscale images acquired of the kidneys and bladder and recorded on P ACS. Additional selected color Doppler and spectral images recorded. LIMITATIONS: None. FINDINGS: RIGHT KIDNEY: Normal size, 11.8 cm. Normal echogenicity. No solid or suspicious brian s. No hydronephrosis. No calcifications. LEFT KIDNEY: Normal size, 12.4 cm. Normal echogenicity. No solid or suspicious masses. No hydr onephrosis. No calcifications. BLADDER: Catheter is in the bladder. The bladder is not distended. OTHER FINDINGS: No other significant finding. IMPRESSION: NORMAL RENAL AND BLADDER ULTRASOUND. TECHNICAL DOCUMENTATION: JOB ID: [id number] [employer]- All Rights Reserved Reading location - IP/workstation name: [email or web address]
[2018-07-29] MEDS: ATORVASTATIN CALCIUM 20 MG TABLET PO SCH (21:14)
[2018-07-30 05:28] LABS: ANION GAP 12 (5-19); BLOOD UREA NITROGEN 37 mg/dL (7-20); CALCIUM 9.2 mg/dL (8.4-10.2); CARBON DIOXIDE 27 mmol/L (22-30); CHLORIDE 102 mmol/L (98-107); GLUCOSE 148 mg/dL (75-110); POTASSIUM 3.9 mmol/L (3.6-5.0); SODIUM 141.2 mmol/L (137-145)
[2018-07-30] MEDS: LANSOPRAZOLE 15 MG TAB.RAP.DR PO SCH (05:38)
[2018-07-30] MEDS: NORMAL SALINE 1000 ML 1,000 ML IV PRN (06:12)
--- NOTE | 2018-07-30 07:28 | PDOC DISCHARGE SUMMARY ---
General - Admit/Disc Date/PCP Admission Date/Primary Care Provider: 07/26/18 05:29 CHANTEL VILLEGAS MD Discharge Date: 07/30/18 - Discharge Diagnosis (1) Arthritis of knee, right Is this a current diagnosis for this admission?: Yes - Physical therapist - Additional Information Resuscitation Status: Full Code Home Medications: Amlodipine Besylate [Norvasc 10 mg Tablet] 10 mg PO DAILY 07/26/18 Benazepril/Hydrochlorothiazide [Benazepril-Hctz 20-12.5 mg Tab] 1 tab PO DAILY 07/26/18 Fluoxetine HCl [Prozac 20 mg Capsule] 20 mg PO DAILY 07/26/18 Fluticasone/Salmeterol [Advair 250-50 Diskus 14 Dose/Diskus] 2 puff IH DAILY Labetalol HCl [Trandate] 300 mg PO Q12 07/26/18 Meloxicam [Mobic] 7.5 mg PO BIDBS 07/26/18 Metformin HCl [Metformin HCl ER] 500 mg PO BIDBS 07/26/18 Montelukast Sodium [Singulair 10 mg Tablet] 10 mg PO DAILY 07/26/18 Omeprazole 20 mg PO BID 07/26/18 Quetiapine Fumarate [Seroquel] 200 mg PO BID 07/26/18 Rosuvastatin Calcium [Crestor 10 mg Tablet] 10 mg PO DAILY 07/26/18 History of Present Illness History of Present Illness: 67-year-old black female status post elective right knee arthroplasty Hospital Course Hospital Course: Postoperative the patient developed transient renal compromise and several episodes of oversedation. Physical Exam Vital Signs: Temp Pulse Resp BP Pulse Ox 36.8 C 98 18 158/58 H 91 L 07/30/18 04:15 07/30/18 04:15 07/30/18 04:15 07/30/18 04:15 07/30/18 04:15 Intake & Output 07/29/18 07/30/18 07/31/18 06:59 06:59 06:59 Intake Total 450 3635 Output Total 800 6200 Balance -350 -2565 Weight 107.5 kg 107.9 kg General appearance: PRESENT: no acute distress, obese Extremities exam: PRESENT: other - Right knee dressing is clean dry and intact Results Laboratory Results: 07/29/18 06:56 07/30/18 04:47 07/29/18 07/29/18 07/29/18 06:56 06:56 06:56 WBC 10.3 RBC 3.35 L Hgb 9.1 L Hct 27.6 L MCV 82 MCH 27.3 MCHC 33.1 RDW 13.7 Plt Count 206 Sodium 130.2 L Potassium 4.1 Chloride 92 L Carbon Dioxide 24 Anion Gap 14 BUN 51 H Creatinine 3.64 H Est GFR ( Amer) 15 L Est GFR (Non-Af Amer) 12 L Glucose 173 H Serum Osmolality 285 Calcium 8.8 Magnesium TSH Urine Color Urine Appearance Urine pH Ur Specific [place] Urine Protein Urine Glucose (UA) Urine Ketones Urine Blood Urine Nitrite Ur Leukocyte Esterase Urine WBC (Auto) Urine RBC (Auto) Urine Osmolality 07/29/18 07/29/18 07/29/18 06:56 13:50 13:50 WBC RBC Hgb Hct MCV MCH MCHC RDW Plt Count Sodium Potassium Chloride Carbon Dioxide Anion Gap BUN Creatinine Est GFR ( Amer) Est GFR (Non-Af Amer) Glucose Serum Osmolality Calcium Magnesium TSH 0.84 Urine Color STRAW Urine Appearance CLEAR Urine pH 5.0 Ur Specific [place] 1.006 Urine Protein NEGATIVE Urine Glucose (UA) NEGATIVE Urine Ketones NEGATIVE Urine Blood NEGATIVE Urine Nitrite NEGATIVE Ur Leukocyte Esterase NEGATIVE Urine WBC (Auto) 0 Urine RBC (Auto) 1 Urine Osmolality 217 L 07/30/18 04:47 WBC RBC Hgb Hct MCV MCH MCHC RDW Plt Count Sodium 141.2 Potassium 3.9 Chloride 102 Carbon Dioxide 27 Anion Gap 12 BUN 37 H Creatinine 1.28 H Est GFR ( Amer) 50 L Est GFR (Non-Af Amer) 42 L Glucose 148 H Serum Osmolality Calcium 9.2 Magnesium 2.7 H TSH Urine Color Urine Appearance Urine pH Ur Specific [place] Urine Protein Urine Glucose (UA) Urine Ketones Urine Blood Urine Nitrite Ur Leukocyte Esterase Urine WBC (Auto) Urine RBC (Auto) Urine Osmolality Impressions: Knee X-Ray 07/26/18 00:00 IMPRESSION: SATISFACTORY POSTOPERATIVE RIGHT KNEE. Renal Ultrasound 07/29/18 00:00 IMPRESSION: NORMAL RENAL AND BLADDER ULTRASOUND. Status: Imported from [employer] - * PATIENT BEING DISCHARGED WITH ANY OF THE FOLLOWING DIAGNOSIS: No VTE patient discharged on overlapping Therapy?: Yes Plan Discharge Plan: Patient be discharged home with home health services and DME. Follow-up with Dr. Jones and [facility] surgery in 2 weeks for reevaluation.
[2018-07-30 08:06] VITALS: BP 166/66
[2018-07-30] MEDS: SENNOSIDES/DOCUSATE 8.6-50 MG 1 EACH TABLET PO SCH (11:01)
[2018-07-30] MEDS: QUETIAPINE FUMARATE 100 MG TABLET PO SCH (11:01)
[2018-07-30] MEDS: ASPIRIN 81 MG TABLET, ENT COATED PO SCH (11:01)
[2018-07-30] MEDS: FLUTICASONE/SALMETEROL DISKUS 250-50 MCG/DOSE IH SCH (11:01)
[2018-07-30] MEDS: MONTELUKAST SODIUM 10 MG TABLET PO SCH (11:01)
[2018-07-30] MEDS: FLUOXETINE HCL 20 MG CAPSULE PO SCH (11:01)
[2018-07-30] MEDS: AMLODIPINE BESYLATE 10 MG TABLET PO SCH (11:01)
[2018-07-30] MEDS: PRENATAL VITAMIN W DHA CAPSULE PO SCH (11:01)
--- NOTE | 2018-07-30 11:03 | PDOC PROGRESS REPORT ---
Subjective Progress Note for:: 07/30/18 Subjective:: Patient's blood pressure is normotensive today. Voicing no complaints. Sodium is now 130. Patient is off hydrochlorothiazide. Patient's BUN and creatinine have elevated creatinine further. BUN of 51 creatinine of 3.6. Patient had episodes of somnolence due to medication responded to Narcan. Opioids have been discontinued currently back on her outpatient Seroquel. Patient received no contrast it is unclear why her creatinine is rising. Nursing did report urinary retention but has subsequently resolved this. Perez catheter was placed yesterday patient had what would be described as a postobstructive diuresis. The ultrasound was done after placement of the Perez there is no hydro-nephrosis noted. Creatinine this morning is 1.2 sodium is now normal. Patient has no new complaints. Reason For Visit: M17.11 UNILATERAL PRIMARY OSTEOARTHRITIS, RIGHT KN Physical Exam Vital Signs: Temp Pulse Resp BP Pulse Ox 98.4 F 93 18 166/66 H 100 07/30/18 08:05 07/30/18 08:05 07/30/18 08:05 07/30/18 08:05 07/30/18 08:05 Intake & Output 07/29/18 07/30/18 07/31/18 06:59 06:59 06:59 Intake Total 450 3635 Output Total 800 6200 Balance -350 -2565 Weight 107.5 kg 107.9 kg General appearance: PRESENT: no acute distress, well-developed, well-nourished Neck exam: ABSENT: carotid bruit, JVD, lymphadenopathy, thyromegaly Respiratory exam: PRESENT: clear to auscultation ezio. ABSENT: rales, rhonchi, wheezes Cardiovascular exam: PRESENT: RRR. ABSENT: diastolic murmur, rubs, systolic murmur GI/Abdominal exam: PRESENT: normal bowel sounds, soft. ABSENT: distended, guarding, mass, organolmegaly, rebound, tenderness Extremities exam: PRESENT: tenderness - Wrist operative right knee pain controlled. ABSENT: calf tenderness, clubbing, pedal edema Results Laboratory Results: 07/29/18 06:56 07/30/18 04:47 07/29/18 07/29/18 07/29/18 06:56 06:56 13:50 Sodium Potassium Chloride Carbon Dioxide Anion Gap BUN Creatinine Est GFR ( Amer) Est GFR (Non-Af Amer) Glucose Serum Osmolality 285 Calcium Magnesium TSH 0.84 Urine Color Urine Appearance Urine pH Ur Specific [place] Urine Protein Urine Glucose (UA) Urine Ketones Urine Blood Urine Nitrite Ur Leukocyte Esterase Urine WBC (Auto) Urine RBC (Auto) Urine Osmolality 217 L 07/29/18 07/30/18 13:50 04:47 Sodium 141.2 Potassium 3.9 Chloride 102 Carbon Dioxide 27 Anion Gap 12 BUN 37 H Creatinine 1.28 H Est GFR ( Amer) 50 L Est GFR (Non-Af Amer) 42 L Glucose 148 H Serum Osmolality Calcium 9.2 Magnesium 2.7 H TSH Urine Color STRAW Urine Appearance CLEAR Urine pH 5.0 Ur Specific [place] 1.006 Urine Protein NEGATIVE Urine Glucose (UA) NEGATIVE Urine Ketones NEGATIVE Urine Blood NEGATIVE Urine Nitrite NEGATIVE Ur Leukocyte Esterase NEGATIVE Urine WBC (Auto) 0 Urine RBC (Auto) 1 Urine Osmolality Impressions: Knee X-Ray 07/26/18 00:00 IMPRESSION: SATISFACTORY POSTOPERATIVE RIGHT KNEE. Renal Ultrasound 07/29/18 00:00 IMPRESSION: NORMAL RENAL AND BLADDER ULTRASOUND. Assessment & Plan - Diagnosis (1) Acute renal failure Is this a current diagnosis for this admission?: Yes Plan: Secondary to urinary retention and obstructive uropathy. This has resolved. Perez catheter will be DC'd patient will be monitored for post void residuals if no post void residual can be transferred to SNF as originally planned. Recommend BMP in 24-48 hours to confirm resolution of renal failure. Patient can restart benazepril hydrochlorothiazide in 24 hours after creatinine confirmed to continue to normalize (2) Arthritis of knee, right Is this a current diagnosis for this admission?: Yes - Physical therapist Plan: As per orthopedics (3) Hypertensive urgency Is this a current diagnosis for this admission?: Yes Plan: Mild systolic hypertension as benazepril has been held anticipate resumption of all outpatient medications tomorrow (4) Hyperlipidemia Is this a current diagnosis for this admission?: Yes (5) Diabetes mellitus type 2 in obese Is this a current diagnosis for this admission?: Yes Plan: Adequate glycemic control resume outpatient medications on discharge (6) Depression Is this a current diagnosis for this admission?: Yes Plan: To use Seroquel Remeron and Prozac unchanged from outpatient. Lyrica and opioids have been discontinued (7) GERD (gastroesophageal reflux disease) Is this a current diagnosis for this admission?: Yes Plan: Continue PPI (8) Hyponatremia Is this a current diagnosis for this admission?: Yes Plan: Resolved with resolution of obstructive uropathy - Time Time Spent with patient: 15-24 minutes
== END 2018-07-30 13:25 | DRG 470 ==
LOC: INOR 05:29 → 4S 10:26
PROVIDERS: ADMIT Orthopaedic Surgery; ATTEND Orthopaedic Surgery
PROC: 0SRC0J9 Replacement of Right Knee Joint with Synthetic Substitute, Cemented, Open Approach (ICD-10-PCS; principal; 2018-07-26 07:30)
DX: M17.11 Unilateral primary osteoarthritis, right knee (principal); E87.1 Hypo-osmolality and hyponatremia; N17.9 Acute kidney failure, unspecified; I16.0 Hypertensive urgency; E11.8 Type 2 diabetes mellitus with unspecified complications; I10 Essential (primary) hypertension; E78.5 Hyperlipidemia, unspecified; Z60.2 Problems related to living alone; T40.605A Adverse effect of unspecified narcotics, initial encounter; T40.2X5A Adverse effect of other opioids, initial encounter; Y92.230 Patient room in hospital as the place of occurrence of the external cause
CPT/HCPCS: 01402; 36415; 76775; 80048; 81001; 82570; 82962; 83036; 83735; 83930; 83935; 84156; 84300; 84443; 85027; 88305; 88311; 94799; C1713; C1776; C9290; G8978-GP; G8979-GP; G8987-GO; G8988-GO; J0131; J0690; J1741; J2250; J2270; J2310; J2405; J2704; J3370; J3490; J7030; J7050; J7060

== ENCOUNTER 2018-12-06 09:25 | Emergency (ER) | payer MEDICARE, OTHER ==
[2018-12-06 09:36] VITALS: BP 182/81
[2018-12-06] MEDS ORDERED: LIDOCAINE 5% (700 MG) TRANSDERMAL ADH..PATCH TP ONE (09:47)
[2018-12-06] MEDS ORDERED: ACETAMINOPHEN 325 MG TABLET PO ONE (09:47)
--- NOTE | 2018-12-06 09:52 | ER Document Report ---
HPI - HPI Patient complains to provider of: Right knee pain Time Seen by Provider: 12/06/18 09:39 Onset: Other - 3 days Onset/Duration: Persistent Quality of pain: Achy Pain Level: 3 Context: Patient presents complaining of right knee pain for the past 2-3 days. Patient denies any fever or injury. Patient does report a previous history of joint replacement surgery. Patient has been taking anti-inflammatory medication without relief of her symptoms. Associated Symptoms: Other - Right knee pain. denies: Fever Exacerbated by: Standing, Movement, Walking Relieved by: Denies Similar symptoms previously: Yes Recently seen / treated by doctor: No - ROS ROS below otherwise negative: Yes Systems Reviewed and Negative: Yes All other systems reviewed and negative - CONSTITUTIONAL Constitutional: DENIES: Fever, Chills - EENT EENT: DENIES: Sore Throat - NEURO Neurology: DENIES: Weakness - CARDIOVASCULAR Cardiovascular: DENIES: Chest pain - MUSCULOSKELETAL Musculoskeletal: REPORTS: Extremity pain - right knee, Swelling - DERM Skin Color: Normal Skin Problems: None Past Medical History - General Information source: Patient - Social History Smoking Status: Never Smoker Chew tobacco use (# tins/day): No Frequency of alcohol use: None Drug Abuse: None Occupation: None Family History: Hypertension - Mother, Malignancy - Colon cancer-father Patient has suicidal ideation: No Patient has homicidal ideation: No - Past Medical History Cardiac Medical History: Reports: Hx Hypercholesterolemia, Hx Hypertension - on meds Pulmonary Medical History: Reports: Hx Asthma Endocrine Medical History: Reports: Hx Diabetes Mellitus Type 2 GI Medical History: Reports: Hx Gastroesophageal Reflux Disease, Hx Colonoscopy, Hx Endoscopy Musculoskeletal Medical History: Reports Hx Arthritis - knees, Reports Hx Musculoskeletal Deformity Psychiatric Medical History: Reports: Hx Depression Traumatic Medical History: Denies: Hx Fractures Past Surgical History: Reports: Hx Orthopedic Surgery - 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 IN LAST 30 DAYS: No - HEENT HEENT: Atraumatic, Normocephalic - NECK Neck: Normal Inspection, Supple - RESPIRATORY Respiratory: Breath Sounds Normal, No Respiratory Distress - CARDIOVASCULAR Cardiovascular: Regular Rate, Regular Rhythm Pulses: Normal: Posterior tibial - BACK Back: Normal Inspection - MUSCULOSKELETAL/EXTREMETIES Musculoskeletal/Extremeties: MAEW, FROM, Tender - Right knee joint tenderness to inferior compartment and right superior compartment, mild joint effusion, normal skin color and temperature overlying joint. No laxity with varus or valgus maneuvers., Edema - NEURO Level of Consciousness: Awake, Alert, Appropriate Motor/Sensory: No Motor Deficit - DERM Integumentary: Warm, Dry, No Rash Course - Re-evaluation Re-evalutation: 12/06/18 09:51 Patient with mild swelling to right knee joint. Normal skin color and temperature overlying joint. No concern for gout or septic arthritis. Patient denies any history of trauma. No concern for fracture. Suspect likely arthritis at this time. Good return precautions discussed with patient. - Vital Signs Vital signs: Temp Pulse Resp BP Pulse Ox 98.6 F 87 20 182/81 H 96 12/06/18 09:35 12/06/18 09:35 12/06/18 09:35 12/06/18 09:35 12/06/18 09:35 Procedures - Immobilization Right Knee Pre-Proc Neuro Vasc Exam: Normal Immobilizer type: Andrez wrap Performed by: PCT Post-Proc Neuro Vasc Exam: Normal Alignment checked and good: Yes Discharge - Discharge Clinical Impression: Arthritis of knee, right Right knee pain Qualifiers: Chronicity: unspecified Qualified Code(s): M25.561 - Pain in right knee Condition: Stable Disposition: HOME, SELF-CARE Instructions: Andrez Wrap ([facility]), Arthritis ([facility]), Oral Narcotic Medication ([facility]) Additional Instructions: Return immediately for any new or worsening symptoms Followup with your primary care provider, call tomorrow to make a followup appointment Follow-up with your orthopedic surgeon for recheck Prescriptions: Capsaicin [Arthritis Pain Relief] 1 applic TP TID PRN #42.5 cream..g. PRN Reason: Hydrocodone/Acetaminophen [[place] 5-325 mg Tablet] 1 tab PO Q8 PRN #10 tablet PRN Reason: Referrals: ELOY CELESTE MD [ACTIVE STAFF] - Follow up tomorrow
== END 2018-12-06 10:02 | disposition home or self-care (01) ==
LOC: ER 09:25
DX: M17.11 Unilateral primary osteoarthritis, right knee (principal); M25.561 Pain in right knee; E78.00 Pure hypercholesterolemia, unspecified; I10 Essential (primary) hypertension; E11.9 Type 2 diabetes mellitus without complications; Z96.651 Presence of right artificial knee joint
CPT/HCPCS: 99283; A9270

== ENCOUNTER → 2019-02-10 | Outpatient (CLI) | payer MEDICARE ==
--- NOTE | 2019-02-10 12:28 | WOMENS IMAGING REPORT ---
EXAM DESCRIPTION: BILAT SCREENING MAMMO W/CAD COMPLETED DATE/TIME: 02/10/2019 9:56 am REASON FOR STUDY: Z12.31 ROUTINE BILATERAL SCREENING Z12.31 ENCNTR SCREEN MAMMOGRAM FOR MALIGNANT N EOPLASM OF JAYE COMPARISON: Multiple since 2008 TECHNIQUE: Standard craniocaudal and mediolateral oblique views of each breast recorded using SmartSyn[employer] l acquisition. LIMITATIONS: None. FINDINGS: No suspicious masses, suspicious calcifications or architectural distortion. No areas of s uspicion. Read with the assistance of CAD. .[facility] - R2 [employer] Faculty Member Version 9.2 IMPRESSION: ASSESSMENT: Negative MAMMOGRAM. BIRADS 1 BREAST DENSITY: c. The breasts are heterogeneously dense, which may obscure small masses. BIRAD: 1 NEGATIVE RECOMMENDATION: ROUTINE SCREENING COMMENT: The patient has been notified of the results by letter per MQSA requirements. Additional no tification policies are in place for contacting patient with suspicious or incomplete findings. Quality ID #[id number]: The [employer] recommends an annual screening mammogram for women aged 40 years or over. This facility utilizes a reminder system to ensure that all patients receive reminder letters, and/or direct phone calls for appointments. This includes reminders for routine scr eening mammograms, diagnostic mammograms, or other Breast Imaging Interventions when appropriate. Th is patient will be placed in the appropriate reminder system. TECHNICAL DOCUMENTATION: FINDING NUMBER: (1) ASSESSMENT: (1) JOB ID: [id number] [employer]- All Rights Reserved Reading location - IP/workstation name: [email or web address]
== END ==
LOC: WI 09:28
PROVIDERS: ATTEND Internal Medicine
DX: Z12.31 Encounter for screening mammogram for malignant neoplasm of breast (principal)
CPT/HCPCS: 77067

== ENCOUNTER 2019-07-07 18:32 | Emergency (ER) | payer OTHER, MEDICARE ==
--- NOTE | 2019-07-07 18:48 | ER Document Report ---
ED Medical Screen (RME) - General Chief Complaint: Allergic Reaction Stated Complaint: ALLERGIC REACTION Time Seen by Provider: 07/07/19 18:42 Primary Care Provider: CHANTEL VILLEGAS MD [Primary Care Provider] - Follow up as needed Mode of Arrival: Ambulatory Information source: Patient Notes: 3-year-old female presented to the ED for complaint of redness inflammation and pain to the left arm. She states she took a flu shot last week and a pneumonia shot Thursday and now her arm is red and inflamed and swollen. She states she took the shot at Dr. Morataya's office. She states she is feeling dizzy lightheaded cannot concentrate and is getting worse today. She states the arm is been feverish but she has not had a fever herself. She is alert oriented respiration s regular and unlabored at this time. Patient states that the flu shot and the pneumonia shot were both given in the same arm about a week apart. She states she has not taken any Tylenol or Motrin today but she has had Benadryl 25 mg about 3 PM. Patient has a history of blood pressure and diabetes and and bipolar. I have greeted and performed a rapid initial assessment of this patient. A co mprehensive ED assessment and evaluation of the patient, analysis of test results and completion of medical decision making process will be conducted by an additional ED providers. TRAVEL OUTSIDE OF THE [place] IN LAST 30 DAYS: No - Related Data Allergies/Adverse Reactions: No Known Allergies Allergy (Verified 07/07/19 18:42) Past Medical History - Past Medical History Cardiac Medical History: Reports: Hx Hypercholesterolemia, Hx Hypertension - on meds Denies: Hx Atrial Fibrillation, Hx Congestive Heart Failure, Hx Coronary Artery Disease, Hx Heart Attack, Hx Peripheral Vascular Disease, Hx Pulmonary Embolism, Hx Heart Murmur Pulmonary Medical History: Reports: Hx Asthma Denies: Hx Bronchitis, Hx COPD, Hx Pneumonia, Hx Respiratory Failure, Hx Sleep Apnea, Hx Tuberculosis Neurological Medical History: Denies: Hx Cerebrovascular Accident, Hx Seizures Endocrine Medical History: Reports: Hx Diabetes Mellitus Type 2. Denies: Hx Graves' Disease, Hx Hyperthyroidism, Hx Hypothyroidism Renal/ Medical History: Denies: Hx Kidney Stones, Hx Peritoneal Dialysis Malignancy Medical History: Denies: Hx Lung Cancer GI Medical History: Reports: Hx Gastroesophageal Reflux Disease, Hx Colonoscopy, Hx Endoscopy. 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 Denies: Hx Colostomy - Immunizations Hx Diphtheria, Pertussis, Tetanus Vaccination: Yes Physical Exam - Vital signs Vitals: Temp Pulse Resp BP Pulse Ox 98.0 F 92 20 152/70 H 97 07/07/19 18:38 07/07/19 18:38 07/07/19 18:38 07/07/19 18:38 07/07/19 18:38 Course - Vital Signs Vital signs: Temp Pulse Resp BP Pulse Ox 98.0 F 92 20 152/70 H 97 07/07/19 18:38 07/07/19 18:38 07/07/19 18:38 07/07/19 18:38 07/07/19 18:38 Doctor's Discharge - Discharge Referrals: CHANTEL VILLEGAS MD [Primary Care Provider] - Follow up as needed
[2019-07-07 19:23] LABS: ABSOLUTE EOSINOPHILS # (AUTO) 0.3 10^3/uL (0.0-0.6); ABSOLUTE LYMPHOCYTES (AUTO) 1.7 10^3/uL (0.5-4.7); ABSOLUTE MONOCYTES (AUTO) 0.8 10^3/uL (0.1-1.4); ABSOLUTE NEUT (AUTO) 5.3 10^3/uL (1.7-8.2); BASOPHILS % (AUTO) 0.5 % (0-2); EOSINOPHILS % (AUTO) 3.5 % (0-6); HEMATOCRIT 32.9 % (36.0-47.0); HEMOGLOBIN 10.7 g/dL (12.0-15.5); LYMPHOCYTES % (AUTO) 20.8 % (13-45); MEAN CORPUSCULAR HEMOGLOBIN 26.3 pg (27.0-33.4); MEAN CORPUSCULAR HGB CONC 32.6 g/dL (32.0-36.0); MEAN CORPUSCULAR VOLUME 81 fl (80-97); MONOCYTES % (AUTO) 9.5 % (3-13); PLATELET COUNT 249 10^3/uL (150-450); RED BLOOD COUNT 4.07 10^6/uL (3.72-5.28); RED CELL DISTRIBUTION WIDTH 14.1 % (11.5-14.0); SEGMENTED NEUTROPHILS % (AUTO) 65.7 % (42-78); TOTAL CELLS COUNTED % (AUTO) 100 %; WHITE BLOOD COUNT 8.1 10^3/uL (4.0-10.5)
[2019-07-07 19:45] LABS: ALKALINE PHOSPHATASE 73 U/L (38-126); ANION GAP 11 (5-19); ASPARTATE AMINO TRANSFERASE 40 U/L (14-36); BILIRUBIN,DIRECT 0.3 mg/dL (0.0-0.4); BILIRUBIN,TOTAL 0.6 mg/dL (0.2-1.3); BLOOD UREA NITROGEN 17 mg/dL (7-20); CALCIUM 9.6 mg/dL (8.4-10.2); CARBON DIOXIDE 26 mmol/L (22-30); CHLORIDE 99 mmol/L (98-107); GLUCOSE 201 mg/dL (75-110); POTASSIUM 3.6 mmol/L (3.6-5.0); TOTAL PROTEIN 7.1 g/dL (6.3-8.2)
[2019-07-07 19:56] LABS: APPEARANCE,URINE SLIGHTLY-CLOUDY; BILIRUBIN,URINE NEGATIVE (NEGATIVE); COLOR,URINE YELLOW; GLUCOSE, URINE NEGATIVE (NEGATIVE); KETONES,URINE NEGATIVE (NEGATIVE); LEUKOCYTE ESTERASE,URINE TRACE (NEGATIVE); NITRITE,URINE NEGATIVE (NEGATIVE); PROTEIN,URINE NEGATIVE (NEGATIVE); URINE SPECIFIC GRAVITY 1.013
--- NOTE | 2019-07-07 23:02 | RADIOLOGY REPORT (SQ) ---
EXAM DESCRIPTION: CT HEAD WITHOUT IV CONTRAST COMPLETED DATE/TME: 07/07/2019 22:02 CLINICAL HISTORY: dizziness COMPARISON: None Available. TECHNIQUE: Contiguous axial images of the brain were obtained without the administration of intravenous contrast. This exam was performed according to our departmental dose-optimization program, which includes automated exposure control, adjustment of the mA and/or kV according to patient size and/or use of iterative reconstruction technique. FINDINGS: There is no acute intracranial hemorrhage or mass effect. Ventricular system is within normal limits. There is adequate gaona-white matter differentiation. There is no skull fracture. The visualized paranasal sinuses and mastoid air cells are within normal limits. IMPRESSION: No acute intracranial abnormalities.
[2019-07-07] MEDS ORDERED: ACETAMINOPHEN 325 MG TABLET PO ONE (23:07)
[2019-07-07] MEDS ORDERED: CEPHALEXIN 500 MG CAPSULE PO ONE (23:34)
[2019-07-07] MEDS ORDERED: SULFAMETHOXAZOLE/TRIMETHOPRIM 800-160 MG TABLET PO ONE (23:34)
--- NOTE | 2019-07-07 23:46 | ER Document Report ---
ED General - General Chief Complaint: Allergic Reaction Stated Complaint: ALLERGIC REACTION Time Seen by Provider: 07/07/19 18:42 Primary Care Provider: CHANTEL VILLEGAS MD [Primary Care Provider] - Follow up as needed Mode of Arrival: Ambulatory Notes: RME NOTE: 3-year-old female presented to the ED for complaint of redness inflammation and pain to the left arm. She states she took a flu shot last week and a pneumonia shot Thursday and now her arm is red and inflamed and swollen. She states she took the shot at Dr. Morataya's office. She states she is feeling dizzy lightheaded cannot concentrate and is getting worse today. She states the arm is been feverish but she has not had a fever herself. She is alert oriented respirations regular and unlabored at this time. Patient states that the flu shot and the pneumonia shot were both given in the same arm about a week apart. She states she has not taken any Tylenol or Motrin today but she has had Benadryl 25 mg about 3 PM. Patient has a history of blood pressure and diabetes and and bipolar. MY HPI: Patient is complaining of swelling noted to the left upper extremity. She is also complaining of generalized malaise. Patient's denying any extended periods being outside, or exposure to ticks. Patient's denying any rash besides lesion noted to left deltoid. Patient's denying any chest pain, shortness of breath. Patient voices she just feels "rundown." Patient's denying any numbness or tingling in extremities, abdominal pain, dysuria, nausea, vomiting, unilateral weakness, headache. TRAVEL OUTSIDE OF THE [place] IN LAST 30 DAYS: No - Related Data Allergies/Adverse Reactions: ibuprofen [From Motrin] Allergy (Verified 07/07/19 20:33) Past Medical History - General Information source: Patient - Social History Smoking Status: Never Smoker Chew tobacco use (# tins/day): No Frequency of alcohol use: None Drug Abuse: None Family History: Hypertension - Mother, Malignancy - Colon cancer-father Patient has suicidal ideation: No Patient has homicidal ideation: No - Past Medical History Cardiac Medical History: Reports: Hx Hypercholesterolemia, Hx Hypertension - on meds Denies: Hx Atrial Fibrillation, Hx Congestive Heart Failure, Hx Coronary Artery Disease, Hx Heart Attack, Hx Peripheral Vascular Disease, Hx Pulmonary Embolism, Hx Heart Murmur Pulmonary Medical History: Reports: Hx Asthma Denies: Hx Bronchitis, Hx COPD, Hx Pneumonia, Hx Respiratory Failure, Hx Sleep Apnea, Hx Tuberculosis Neurological Medical History: Denies: Hx Cerebrovascular Accident, Hx Seizures Endocrine Medical History: Reports: Hx Diabetes Mellitus Type 2. Denies: Hx Graves' Disease, Hx Hyperthyroidism, Hx Hypothyroidism Renal/ Medical History: Denies: Hx Kidney Stones, Hx Peritoneal Dialysis Malignancy Medical History: Denies: Hx Lung Cancer GI Medical History: Reports: Hx Gastroesophageal Reflux Disease, Hx Colonoscopy, Hx Endoscopy. 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 Denies: Hx Colostomy - Immunizations Hx Diphtheria, Pertussis, Tetanus Vaccination: Yes Review of Systems - Review of Systems Constitutional: denies: Fever EENT: No symptoms reported Cardiovascular: denies: Chest pain Respiratory: No symptoms reported Gastrointestinal: No symptoms reported Genitourinary: No symptoms reported Female Genitourinary: No symptoms reported Musculoskeletal: See HPI Skin: See HPI Hematologic/Lymphatic: No symptoms reported Neurological/Psychological: See HPI Physical Exam - Vital signs Vitals: Temp Pulse Resp BP Pulse Ox 98.0 F 92 20 152/70 H 97 07/07/19 18:38 07/07/19 18:38 07/07/19 18:38 07/07/19 18:38 07/07/19 18:38 - Notes Notes: GENERAL: Alert, interacts well. No acute distress. HEAD: Normocephalic, atraumatic. EYES: Pupils equal, round, and reactive to light. Extraocular movements intact. ENT: Oral mucosa moist, tongue midline. NECK: Full range of motion. Supple. Trachea midline. LUNGS: Clear to auscultation bilaterally, no wheezes, rales, or rhonchi. No respiratory distress. HEART: Regular rate and rhythm. No murmur ABDOMEN: Soft, non-tender. Non-distended. Bowel sounds present in all 4 quadrants. EXTREMITIES: Moves all 4 extremities spontaneously. No edema, normal radial and dorsalis pedis pulses bilaterally. No cyanosis. 5 out of 5 strength noted all 4 extremities BACK: no cervical, thoracic, lumbar midline tenderness. No saddle anesthesia, normal distal neurovascular exam. NEUROLOGICAL: Alert and oriented x3. Normal speech. cranial nerves II through XII grossly intact. PSYCH: Normal affect, normal mood. SKIN: Warm, dry, normal turgor. Large area of erythema and induration noted left deltoid. NIH score is 0. Course - Re-evaluation Re-evalutation: 07/07/19 23:43 Laboratory 07/07/19 07/07/19 07/07/19 18:50 18:50 18:50 WBC 8.1 RBC 4.07 Hgb 10.7 L Hct 32.9 L MCV 81 MCH 26.3 L MCHC 32.6 RDW 14.1 H Plt Count 249 Lymph % (Auto) 20.8 Union % (Auto) 9.5 Eos % (Auto) 3.5 Baso % (Auto) 0.5 Absolute Neuts (auto) 5.3 Absolute Lymphs (auto) 1.7 Absolute Monos (auto) 0.8 Absolute Eos (auto) 0.3 Absolute Basos (auto) 0.0 Seg Neutrophils % 65.7 Sodium 136.1 L Potassium 3.6 Chloride 99 Carbon Dioxide 26 Anion Gap 11 BUN 17 Creatinine 0.92 Est GFR ( Amer) > 60 Est GFR (MDRD) Non-Af > 60 Glucose 201 H Calcium 9.6 Total Bilirubin 0.6 Direct Bilirubin 0.3 Neonat Total Bilirubin Not Reportable Neonat Direct Bilirubin Not Reportable Neonat Indirect Bili Not Reportable AST 40 H ALT 40 Alkaline Phosphatase 73 Troponin I Total Protein 7.1 Albumin 4.0 Urine Color YELLOW Urine Appearance SLIGHTLY-CLOUDY Urine pH 5.0 Ur Specific Koppel 1.013 Urine Protein NEGATIVE Urine Glucose (UA) NEGATIVE Urine Ketones NEGATIVE Urine Blood NEGATIVE Urine Nitrite NEGATIVE Urine Bilirubin NEGATIVE Urine Urobilinogen 2.0 H Ur Leukocyte Esterase TRACE H Urine WBC (Auto) 3 Urine RBC (Auto) 1 U Hyaline Cast (Auto) 1 Squamous Epi Cells Auto 4 Urine Mucus (Auto) RARE Urine Ascorbic Acid NEGATIVE 07/07/19 18:50 WBC RBC Hgb Hct MCV MCH MCHC RDW Plt Count Lymph % (Auto) Union % (Auto) Eos % (Auto) Baso % (Auto) Absolute Neuts (auto) Absolute Lymphs (auto) Absolute Monos (auto) Absolute Eos (auto) Absolute Basos (auto) Seg Neutrophils % Sodium Potassium Chloride Carbon Dioxide Anion Gap BUN Creatinine Est GFR ( Amer) Est GFR (MDRD) Non-Af Glucose Calcium Total Bilirubin Direct Bilirubin Neonat Total Bilirubin Neonat Direct Bilirubin Neonat Indirect Bili AST ALT Alkaline Phosphatase Troponin I < 0.012 Total Protein Albumin Urine Color Urine Appearance Urine pH Ur Specific Koppel Urine Protein Urine Glucose (UA) Urine Ketones Urine Blood Urine Nitrite Urine Bilirubin Urine Urobilinogen Ur Leukocyte Esterase Urine WBC (Auto) Urine RBC (Auto) U Hyaline Cast (Auto) Squamous Epi Cells Auto Urine Mucus (Auto) Urine Ascorbic Acid Head CT 07/07/19 22:02 IMPRESSION: No acute intracranial abnormalities. Patient initially presents to for cellulitis noted to the left upper arm status post influenza and pneumonia shots. Patient voices she overall feels lightheaded and generalized weakness. Patient's denying any change in her speech, any unilateral weakness, headache, dysuria, chest pain, shortness of breath. Patient's testing reveals no abnormalities. Patient's blood pressure is noted to be elevated although she has not taken her home medications yet this evening. Patient's EKG shows sinus rhythm 73, QTc 476, no ST segment elevations or depressions noted, read by Dr. Powers. I discussed patient's negative lab results with her at bedside. Patient voices she overall feels a lot better knowing that "everything looks good." I discussed use of antibiotics for cellulitic skin noted to left upper arm. I discussed close follow-up with primary care provider for reevaluation of pallavi lulitis. Also discussed she is to take her home medications when she gets home. Patient voices understanding. Stable for discharge. - Vital Signs Vital signs: Temp Pulse Resp BP Pulse Ox 99.1 F 79 18 168/82 H 97 07/08/19 00:56 07/08/19 00:56 07/08/19 00:56 07/08/19 00:56 07/08/19 00:56 - Laboratory Result Diagrams: 07/07/19 18:50 07/07/19 18:50 Laboratory results interpreted by me: 10/12/2107/07/19 07/07/19 18:50 18:50 18:50 Hgb 10.7 L Hct 32.9 L MCH 26.3 L RDW 14.1 H Sodium 136.1 L Glucose 201 H AST 40 H Urine Urobilinogen 2.0 H Ur Leukocyte Esterase TRACE H Discharge - Discharge Clinical Impression: Weakness Cellulitis Qualifiers: Site of cellulitis: extremity Site of cellulitis of extremity: upper extremity Laterality: left Qualified Code(s): L03.114 - Cellulitis of left upper limb Condition: Stable Disposition: HOME, SELF-CARE Instructions: Cellulitis (OM) Additional Instructions: As we discussed you have been seen and treated in the emergency department for a skin infection noted to your left upper extremity. Please make sure you are taking antibiotics as prescribed. Please take [id number] Tylenol for generalized discomfort. Please follow-up with your primary care provider in the next 24 to 48 hours. Return to the emergency room for any concerns. Prescriptions: Sulfamethoxazole/Trimethoprim [Bactrim Ds Tablet] 1 each PO BID 7 Days #14 tablet Cephalexin Monohydrate [Keflex 500 mg Capsule] 500 mg PO BID 7 Days #14 capsule Referrals: CHANTEL VILLEGAS MD [Primary Care Provider] - Follow up as needed
[2019-07-08 00:57] VITALS: BP 179/90
--- NOTE | 2019-07-08 13:38 | EKG REPORT ---
SEVERITY:- NORMAL ECG - SINUS RHYTHM : Confirmed by: Celia Fonseca MD 08-Jul-2019 13:38:18
== END 2019-07-08 01:01 | disposition home or self-care (01) ==
LOC: ER 18:32
DX: L03.114 Cellulitis of left upper limb (principal); R53.1 Weakness; E78.00 Pure hypercholesterolemia, unspecified; I10 Essential (primary) hypertension; Z88.6 Allergy status to analgesic agent; Z96.651 Presence of right artificial knee joint
CPT/HCPCS: 36415; 70450; 80053; 81001; 84484; 85025; 93005; 93010

== ENCOUNTER → 2019-12-30 | Outpatient (CLI) | payer MEDICARE, OTHER ==
[2019-12-30 10:14] LABS: ABSOLUTE EOSINOPHILS # (AUTO) 0.2 10^3/uL (0.0-0.6); ABSOLUTE LYMPHOCYTES (AUTO) 1.8 10^3/uL (0.5-4.7); ABSOLUTE MONOCYTES (AUTO) 0.4 10^3/uL (0.1-1.4); ABSOLUTE NEUT (AUTO) 3.5 10^3/uL (1.7-8.2); BASOPHILS % (AUTO) 0.8 % (0-2); EOSINOPHILS % (AUTO) 3.1 % (0-6); HEMATOCRIT 36.4 % (36.0-47.0); HEMOGLOBIN 11.8 g/dL (12.0-15.5); LYMPHOCYTES % (AUTO) 30.5 % (13-45); MEAN CORPUSCULAR HEMOGLOBIN 26.8 pg (27.0-33.4); MEAN CORPUSCULAR HGB CONC 32.4 g/dL (32.0-36.0); MEAN CORPUSCULAR VOLUME 83 fl (80-97); PLATELET COUNT 272 10^3/uL (150-450); RED BLOOD COUNT 4.41 10^6/uL (3.72-5.28); RED CELL DISTRIBUTION WIDTH 13.7 % (11.5-14.0); SEGMENTED NEUTROPHILS % (AUTO) 59.6 % (42-78); TOTAL CELLS COUNTED % (AUTO) 100 %
[2019-12-30 10:36] LABS: ALBUMIN 4.5 g/dL (3.5-5.0); ALKALINE PHOSPHATASE 61 U/L (38-126); ANION GAP 11 (5-19); ASPARTATE AMINO TRANSFERASE 41 U/L (14-36); BILIRUBIN,TOTAL 0.5 mg/dL (0.2-1.3); BLOOD UREA NITROGEN 11 mg/dL (7-20); CALCIUM 9.7 mg/dL (8.4-10.2); CARBON DIOXIDE 29 mmol/L (22-30); CHLORIDE 99 mmol/L (98-107); CHOLESTEROL 147.38 mg/dL (0-200); GLUCOSE 111 mg/dL (75-110); POTASSIUM 3.8 mmol/L (3.6-5.0); TOTAL PROTEIN 7.2 g/dL (6.3-8.2); TRIGLYCERIDES 102 mg/dL (<150)
[2019-12-30 10:47] LABS: DIRECT LDL 79 mg/dL (<100)
== END ==
LOC: OD 09:03
PROVIDERS: ATTEND Internal Medicine
DX: I10 Essential (primary) hypertension (principal); E78.00 Pure hypercholesterolemia, unspecified; E11.9 Type 2 diabetes mellitus without complications; Z79.899 Other long term (current) drug therapy
CPT/HCPCS: 36415; 80053; 80061; 85025